=== PATIENT | male | born 1950 | race Caucasian/White ===

== ENCOUNTER 2024-04-20 04:27 | Outpatient (RCR) | payer MEDICARE, BC, SELFPAY ==
[2024-04-20 14:18] LABS: HCT 29.3 % (40.0-50.0); HGB 9.4 g/dL (13.5-17.5); MCH 27.6 pg (27.0-33.0); MCHC 32.1 % (32.0-36.0); MCV 86 fL (80-95); MPV 9.7 fL (8.0-11.0); Platelet Count 170 10^3/uL (130-400); RDW 15.2 % (11.8-14.1); RDW-SD 47.9 fL
[2024-04-20 14:43] LABS: Absolute Eosinophil Count 0.04 10^3/uL (0.0-0.7); Absolute Lymphocyte Count 0.89 10^3/uL (1.2-3.4); Absolute Monocyte Count 0.14 10^3/uL (0.1-0.8); Absolute Neutrophil Count 0.71 10^3/uL (1.2-6.7)
[2024-04-20 14:47] LABS: ALT 25 U/L (16-63); AST 16 U/L (15-37); Albumin 2.7 g/dL (3.4-5.0); Alkaline Phosphatase 93 U/L (46-116); Anion Gap 9.7 mmol/L (3-11); BUN 12 mg/dL (7-18); Bilirubin, Total 0.3 mg/dL (0.2-1.0); CO2 23.3 mmol/L (21.0-32.0); CREATININE 1.3 mg/dL (0.70-1.30); Calcium 8.2 mg/dL (8.5-10.1); Chloride 110 mmol/L (98-107); Diff Comment Manual Differential; Estimated GFR 58.37 (mL/min/1.73m2); FREE T4 1.19 ng/dL (0.76-1.46); Glucose 106 mg/dL (74-106); Magnesium 1.6 mg/dL (1.8-2.4); Potassium 4.3 mmol/L (3.5-5.1); RBC Morphology Normal; Sodium 143 mmol/L (136-145); Total Protein 6.1 g/dL (6.4-8.2); WBC 1.77 10^3/uL (4.4-10.8)
== END 2024-05-17 23:59 | disposition home or self-care (01) ==
LOC: INF 04:27
PROVIDERS: PCP Family Medicine; Visit Provider Internal Medicine Medical Oncology
DX: C34.91 Malignant neoplasm of unspecified part of right bronchus or lung (principal); C79.71 Secondary malignant neoplasm of right adrenal gland; C79.72 Secondary malignant neoplasm of left adrenal gland; C78.89 Secondary malignant neoplasm of other digestive organs; Z79.899 Other long term (current) drug therapy
CPT/HCPCS: 36415; 80053; 83735; 84439; 84443; 85025

== ENCOUNTER 2024-06-17 01:34 | Outpatient (RCR) | payer MEDICARE, BC, SELFPAY ==
[2024-05-27] MEDS: Normal Saline Flush 10 ML SYR IVP (07:37)
[2024-05-27 08:16] LABS: Abs Immature Grans 0.08 10^3/uL (0.0-0.06); Absolute Basophil Count 0.05 10^3/uL (0.0-0.2); Absolute Eosinophil Count 0.02 10^3/uL (0.0-0.7); Absolute Lymphocyte Count 1.26 10^3/uL (1.2-3.4); Absolute Monocyte Count 0.48 10^3/uL (0.1-0.8); Absolute Neutrophil Count 3.94 10^3/uL (1.2-6.7); Basophils % 0.9 %; Eosinophils % 0.3 %; HCT 32.3 % (40.0-50.0); HGB 10.4 g/dL (13.5-17.5); Immature Grans % 1.4 %; Lymphocytes % 21.6 %; MCHC 32.2 % (32.0-36.0); MCV 87 fL (80-95); MPV 9.9 fL (8.0-11.0); Monocytes % 8.2 %; Neutrophils % 67.6 %; Platelet Count 331 10^3/uL (130-400); RBC 3.72 10^6/uL (4.36-5.78); RDW 17.5 % (11.8-14.1); RDW-SD 55.1 fL; WBC 5.83 10^3/uL (4.4-10.8)
[2024-05-27 09:01] LABS: ALT 27 U/L (16-63); AST 20 U/L (15-37); Albumin 2.6 g/dL (3.4-5.0); Alkaline Phosphatase 96 U/L (46-116); Anion Gap 7.2 mmol/L (3-11); BUN 17 mg/dL (7-18); Bilirubin, Total 0.29 mg/dL (0.2-1.0); CO2 26.8 mmol/L (21.0-32.0); CREATININE 1.3 mg/dL (0.70-1.30); Calcium 8.7 mg/dL (8.5-10.1); Chloride 105 mmol/L (98-107); Estimated GFR 58.37 (mL/min/1.73m2); FREE T4 1.37 ng/dL (0.76-1.46); Glucose 111 mg/dL (74-106); Magnesium 1.8 mg/dL (1.8-2.4); Potassium 4.5 mmol/L (3.5-5.1); Sodium 139 mmol/L (136-145); TSH 6.37 uIU/Ml (0.36-3.74); Total Protein 6.7 g/dL (6.4-8.2)
[2024-06-17] MEDS: Normal Saline Flush 10 ML SYR IVP (07:25)
[2024-06-17 07:28] LABS: Abs Immature Grans 0.11 10^3/uL (0.0-0.06); Absolute Basophil Count 0.05 10^3/uL (0.0-0.2); Absolute Eosinophil Count 0.02 10^3/uL (0.0-0.7); Absolute Monocyte Count 0.51 10^3/uL (0.1-0.8); Absolute Neutrophil Count 6.91 10^3/uL (1.2-6.7); Basophils % 0.6 %; Eosinophils % 0.2 %; HCT 31.7 % (40.0-50.0); Immature Grans % 1.3 %; Lymphocytes % 12.6 %; MCH 28.7 pg (27.0-33.0); MCHC 31.5 % (32.0-36.0); MCV 91 fL (80-95); MPV 9.7 fL (8.0-11.0); Monocytes % 5.9 %; Neutrophils % 79.4 %; Platelet Count 150 10^3/uL (130-400); RBC 3.49 10^6/uL (4.36-5.78); RDW 20.5 % (11.8-14.1); RDW-SD 63.1 fL
[2024-06-17 08:05] LABS: Anisocytosis 2+; Diff Comment RBC Morph Reviewed; Polychromasia Present
[2024-06-17 08:08] LABS: ALT 28 U/L (16-63); AST 18 U/L (15-37); Albumin 3.2 g/dL (3.4-5.0); Alkaline Phosphatase 112 U/L (46-116); Anion Gap 11.2 mmol/L (3-11); BUN 28 mg/dL (7-18); Bilirubin, Total 0.34 mg/dL (0.2-1.0); CO2 22.8 mmol/L (21.0-32.0); CREATININE 1.6 mg/dL (0.70-1.30); Calcium 8.7 mg/dL (8.5-10.1); Chloride 106 mmol/L (98-107); FREE T4 1.08 ng/dL (0.76-1.46); Glucose 116 mg/dL (74-106); Magnesium 1.7 mg/dL (1.8-2.4); Potassium 4.8 mmol/L (3.5-5.1); Sodium 140 mmol/L (136-145); TSH 4.71 uIU/Ml (0.36-3.74); Total Protein 6.7 g/dL (6.4-8.2)
== END 2024-06-17 23:59 | disposition home or self-care (01) ==
LOC: INF 01:34
PROVIDERS: PCP Family Medicine; Visit Provider Internal Medicine Medical Oncology
DX: C34.91 Malignant neoplasm of unspecified part of right bronchus or lung (principal); Z79.899 Other long term (current) drug therapy; Z45.2 Encounter for adjustment and management of vascular access device
CPT/HCPCS: 36591; 80053; 83735; 84439; 84443; 85025

== ENCOUNTER 2024-07-06 03:14 | Outpatient (RCR) | payer MEDICARE, BC, SELFPAY ==
[2024-07-06] MEDS: Normal Saline Flush 10 ML SYR IVP (07:33)
[2024-07-06 07:57] LABS: Abs Immature Grans 0.17 10^3/uL (0.0-0.06); Absolute Basophil Count 0.06 10^3/uL (0.0-0.2); Absolute Eosinophil Count 0.04 10^3/uL (0.0-0.7); Absolute Lymphocyte Count 1.46 10^3/uL (1.2-3.4); Absolute Monocyte Count 0.48 10^3/uL (0.1-0.8); Absolute Neutrophil Count 7.27 10^3/uL (1.2-6.7); Basophils % 0.6 %; Eosinophils % 0.4 %; HGB 9.7 g/dL (13.5-17.5); Immature Grans % 1.8 %; Lymphocytes % 15.4 %; MCHC 32.3 % (32.0-36.0); MCV 93 fL (80-95); MPV 9.8 fL (8.0-11.0); Monocytes % 5.1 %; Neutrophils % 76.7 %; Platelet Count 119 10^3/uL (130-400); RBC 3.23 10^6/uL (4.36-5.78); RDW 21.9 % (11.8-14.1); RDW-SD 73.8 fL; WBC 9.48 10^3/uL (4.4-10.8)
[2024-07-06 08:18] LABS: Anisocytosis 2+; Diff Comment RBC Morph Reviewed
[2024-07-06 08:31] LABS: ALT 23 U/L (16-63); AST 13 U/L (15-37); Albumin 3.4 g/dL (3.4-5.0); Alkaline Phosphatase 118 U/L (46-116); Anion Gap 8.1 mmol/L (3-11); BUN 23 mg/dL (7-18); Bilirubin, Total 0.26 mg/dL (0.2-1.0); CO2 23.9 mmol/L (21.0-32.0); CREATININE 1.5 mg/dL (0.70-1.30); Calcium 8.7 mg/dL (8.5-10.1); Chloride 106 mmol/L (98-107); Estimated GFR 49.16 (mL/min/1.73m2); FREE T4 1.13 ng/dL (0.76-1.46); Glucose 120 mg/dL (74-106); Magnesium 1.4 mg/dL (1.8-2.4); Potassium 4.6 mmol/L (3.5-5.1); Sodium 138 mmol/L (136-145); TSH 6.65 uIU/Ml (0.36-3.74); Total Protein 6.6 g/dL (6.4-8.2)
== END 2024-07-18 23:59 | disposition home or self-care (01) ==
LOC: INF 03:14
PROVIDERS: PCP Family Medicine; Visit Provider Internal Medicine Medical Oncology
DX: C34.91 Malignant neoplasm of unspecified part of right bronchus or lung (principal); Z79.899 Other long term (current) drug therapy; Z45.2 Encounter for adjustment and management of vascular access device
CPT/HCPCS: 36591; 80053; 83735; 84439; 84443; 85025

== ENCOUNTER 2024-08-03 04:03 | Outpatient (RCR) | payer MEDICARE, BC, SELFPAY ==
[2024-07-29 08:05] LABS: CREATININE 1.7 mg/dL (0.70-1.30)
[2024-07-29] MEDS: Normal Saline Flush 10 ML SYR IVP (08:17)
[2024-08-03] MEDS: Normal Saline Flush 10 ML SYR IVP (12:49)
[2024-08-03 13:25] LABS: Abs Immature Grans 0.01 10^3/uL (0.0-0.06); Absolute Basophil Count 0.09 10^3/uL (0.0-0.2); Absolute Eosinophil Count 0.17 10^3/uL (0.0-0.7); Absolute Monocyte Count 0.57 10^3/uL (0.1-0.8); Absolute Neutrophil Count 3.69 10^3/uL (1.2-6.7); Basophils % 1.5 %; Eosinophils % 2.9 %; HCT 31.9 % (40.0-50.0); HGB 10.6 g/dL (13.5-17.5); Immature Grans % 0.2 %; Lymphocytes % 23.6 %; MCH 33.1 pg (27.0-33.0); MCHC 33.2 % (32.0-36.0); MCV 100 fL (80-95); MPV 9.6 fL (8.0-11.0); Monocytes % 9.6 %; Neutrophils % 62.2 %; Platelet Count 148 10^3/uL (130-400); RDW-SD 62.3 fL; WBC 5.93 10^3/uL (4.4-10.8)
[2024-08-03 13:59] LABS: ALT 21 U/L (16-63); AST 20 U/L (15-37); Albumin 3.4 g/dL (3.4-5.0); Alkaline Phosphatase 89 U/L (46-116); Anion Gap 7.8 mmol/L (3-11); BUN 23 mg/dL (7-18); Bilirubin, Total 0.47 mg/dL (0.2-1.0); CO2 23.2 mmol/L (21.0-32.0); CREATININE 1.5 mg/dL (0.70-1.30); Calcium 8.8 mg/dL (8.5-10.1); Chloride 107 mmol/L (98-107); Estimated GFR 49.16 (mL/min/1.73m2); FREE T4 1.04 ng/dL (0.76-1.46); Glucose 92 mg/dL (74-106); Magnesium 1.8 mg/dL (1.8-2.4); Potassium 4.4 mmol/L (3.5-5.1); Sodium 138 mmol/L (136-145); TSH 4.28 uIU/Ml (0.36-3.74); Total Protein 6.6 g/dL (6.4-8.2)
== END 2024-08-17 23:59 | disposition home or self-care (01) ==
LOC: INF 04:03
PROVIDERS: Radiology Radiation Oncology; PCP Family Medicine; Visit Provider Internal Medicine Medical Oncology
DX: C34.91 Malignant neoplasm of unspecified part of right bronchus or lung; C78.89 Secondary malignant neoplasm of other digestive organs; Z79.899 Other long term (current) drug therapy; C79.72 Secondary malignant neoplasm of left adrenal gland
CPT/HCPCS: 36591; 80053; 82565; 83735; 84439; 84443; 85025

== ENCOUNTER 2024-08-24 09:25 | Outpatient (REF) | payer MEDICARE, BC, SELFPAY ==
[2024-08-24 09:51] LABS: Abs Immature Grans 0.02 10^3/uL (0.0-0.06); Absolute Basophil Count 0.03 10^3/uL (0.0-0.2); Absolute Eosinophil Count 0.11 10^3/uL (0.0-0.7); Absolute Lymphocyte Count 0.43 10^3/uL (1.2-3.4); Absolute Monocyte Count 0.36 10^3/uL (0.1-0.8); Absolute Neutrophil Count 4.19 10^3/uL (1.2-6.7); Basophils % 0.6 %; Eosinophils % 2.1 %; HCT 30.7 % (40.0-50.0); HGB 10.4 g/dL (13.5-17.5); Immature Grans % 0.4 %; Lymphocytes % 8.4 %; MCH 34.1 pg (27.0-33.0); MCHC 33.9 % (32.0-36.0); MCV 101 fL (80-95); MPV 9.3 fL (8.0-11.0); Neutrophils % 81.5 %; Platelet Count 173 10^3/uL (130-400); RBC 3.05 10^6/uL (4.36-5.78); RDW 12.9 % (11.8-14.1); RDW-SD 47.4 fL; WBC 5.14 10^3/uL (4.4-10.8)
[2024-08-24 10:15] LABS: ALT 13 U/L (16-63); AST 20 U/L (15-37); Alkaline Phosphatase 90 U/L (46-116); Anion Gap 11.5 mmol/L (3-11); BUN 17 mg/dL (7-18); Bilirubin, Total 0.53 mg/dL (0.2-1.0); CO2 24.5 mmol/L (21.0-32.0); CREATININE 1.3 mg/dL (0.70-1.30); Calcium 8.8 mg/dL (8.5-10.1); Chloride 107 mmol/L (98-107); Estimated GFR 58.37 (mL/min/1.73m2); Glucose 117 mg/dL (74-106); Magnesium 1.9 mg/dL (1.8-2.4); Potassium 3.9 mmol/L (3.5-5.1); Sodium 143 mmol/L (136-145); TSH 4.49 uIU/Ml (0.36-3.74); Total Protein 6.7 g/dL (6.4-8.2)
== END 2024-08-24 09:26 | disposition home or self-care (01) ==
LOC: LBN 09:25
PROVIDERS: PCP Family Medicine; Visit Provider Internal Medicine Medical Oncology
DX: Z79.899 Other long term (current) drug therapy (principal); C34.91 Malignant neoplasm of unspecified part of right bronchus or lung; C79.71 Secondary malignant neoplasm of right adrenal gland
CPT/HCPCS: 80053; 83735; 84439; 84443; 85025

== ENCOUNTER 2024-09-14 01:42 | Outpatient (RCR) | payer MEDICARE, BC, SELFPAY ==
[2024-09-14] MEDS: Normal Saline Flush 10 ML SYR IVP (07:41)
[2024-09-14 07:54] LABS: Abs Immature Grans 0.02 10^3/uL (0.0-0.06); Absolute Basophil Count 0.03 10^3/uL (0.0-0.2); Absolute Eosinophil Count 0.14 10^3/uL (0.0-0.7); Absolute Lymphocyte Count 0.47 10^3/uL (1.2-3.4); Absolute Monocyte Count 0.46 10^3/uL (0.1-0.8); Absolute Neutrophil Count 2.86 10^3/uL (1.2-6.7); Basophils % 0.8 %; Eosinophils % 3.5 %; HCT 32.1 % (40.0-50.0); HGB 10.8 g/dL (13.5-17.5); Immature Grans % 0.5 %; Lymphocytes % 11.8 %; MCH 33.4 pg (27.0-33.0); MCHC 33.6 % (32.0-36.0); MCV 99 fL (80-95); MPV 9.6 fL (8.0-11.0); Monocytes % 11.6 %; Neutrophils % 71.8 %; Platelet Count 109 10^3/uL (130-400); RBC 3.23 10^6/uL (4.36-5.78); RDW 12.5 % (11.8-14.1); RDW-SD 44.9 fL; WBC 3.98 10^3/uL (4.4-10.8)
[2024-09-14 08:26] LABS: ALT 21 U/L (16-63); AST 23 U/L (15-37); Alkaline Phosphatase 84 U/L (46-116); Anion Gap 8.7 mmol/L (3-11); BUN 23 mg/dL (7-18); Bilirubin, Total 0.35 mg/dL (0.2-1.0); CO2 29.3 mmol/L (21.0-32.0); CREATININE 1.4 mg/dL (0.70-1.30); Calcium 8.9 mg/dL (8.5-10.1); Chloride 105 mmol/L (98-107); FREE T4 1.19 ng/dL (0.76-1.46); Glucose 115 mg/dL (74-106); Magnesium 1.4 mg/dL (1.8-2.4); Potassium 3.4 mmol/L (3.5-5.1); Sodium 143 mmol/L (136-145); TSH 5.23 uIU/mL (0.36-3.74); Total Protein 6.6 g/dL (6.4-8.2)
== END 2024-09-17 23:59 | disposition home or self-care (01) ==
LOC: INF 01:42
PROVIDERS: PCP Family Medicine; Visit Provider Internal Medicine Medical Oncology
DX: C34.91 Malignant neoplasm of unspecified part of right bronchus or lung (principal); C79.71 Secondary malignant neoplasm of right adrenal gland; C79.72 Secondary malignant neoplasm of left adrenal gland; C78.89 Secondary malignant neoplasm of other digestive organs; Z45.2 Encounter for adjustment and management of vascular access device; Z79.899 Other long term (current) drug therapy
CPT/HCPCS: 36591; 80053; 83735; 84439; 84443; 85025

== ENCOUNTER 2024-10-05 01:50 | Outpatient (RCR) | payer MEDICARE, BC, SELFPAY ==
[2024-10-05] MEDS: Normal Saline Flush 10 ML SYR IVP (07:53)
[2024-10-05 08:07] LABS: Abs Immature Grans 0.01 10^3/uL (0.0-0.06); Absolute Basophil Count 0.04 10^3/uL (0.0-0.2); Absolute Neutrophil Count 3.47 10^3/uL (1.2-6.7); Basophils % 0.9 %; Eosinophils % 4.3 %; HCT 30.3 % (40.0-50.0); HGB 10.3 g/dL (13.5-17.5); Immature Grans % 0.2 %; Lymphocytes % 8.7 %; MCH 32.8 pg (27.0-33.0); MCV 97 fL (80-95); MPV 9.4 fL (8.0-11.0); Monocytes % 10.8 %; Neutrophils % 75.1 %; Platelet Count 142 10^3/uL (130-400); RBC 3.14 10^6/uL (4.36-5.78); RDW 13.1 % (11.8-14.1); RDW-SD 45.6 fL; WBC 4.62 10^3/uL (4.4-10.8)
[2024-10-05 08:30] LABS: ALT 19 U/L (16-63); AST 21 U/L (15-37); Albumin 2.9 g/dL (3.4-5.0); Alkaline Phosphatase 98 U/L (46-116); Anion Gap 6.6 mmol/L (3-11); BUN 20 mg/dL (7-18); Bilirubin, Total 0.43 mg/dL (0.2-1.0); CO2 27.4 mmol/L (21.0-32.0); CREATININE 1.3 mg/dL (0.70-1.30); Calcium 8.6 mg/dL (8.5-10.1); Chloride 109 mmol/L (98-107); Estimated GFR 58.37 (mL/min/1.73m2); FREE T4 1.31 ng/dL (0.76-1.46); Glucose 110 mg/dL (74-106); Magnesium 1.7 mg/dL (1.8-2.4); Potassium 3.9 mmol/L (3.5-5.1); Sodium 143 mmol/L (136-145); TSH 5.16 uIU/mL (0.36-3.74); Total Protein 6.6 g/dL (6.4-8.2)
== END 2024-10-17 23:59 | disposition home or self-care (01) ==
LOC: INF 01:50
PROVIDERS: PCP Family Medicine; Visit Provider Internal Medicine Medical Oncology
DX: C34.91 Malignant neoplasm of unspecified part of right bronchus or lung (principal); C79.71 Secondary malignant neoplasm of right adrenal gland; C79.72 Secondary malignant neoplasm of left adrenal gland; C78.89 Secondary malignant neoplasm of other digestive organs; Z79.899 Other long term (current) drug therapy; Z45.2 Encounter for adjustment and management of vascular access device
CPT/HCPCS: 36591; 80053; 83735; 84439; 84443; 85025

== ENCOUNTER 2024-10-26 02:01 | Outpatient (RCR) | payer MEDICARE, BC, SELFPAY ==
[2024-10-26] MEDS: Normal Saline Flush 10 ML SYR IVP (08:31)
[2024-10-26 08:32] LABS: Abs Immature Grans 0.03 10^3/uL (0.0-0.06); HCT 34.4 % (40.0-50.0); HGB 11.9 g/dL (13.5-17.5); MCH 33.5 pg (27.0-33.0); MCHC 34.6 % (32.0-36.0); MCV 97 fL (80-95); MPV 9.4 fL (8.0-11.0); Platelet Count 185 10^3/uL (130-400); RBC 3.55 10^6/uL (4.36-5.78); RDW 13.8 % (11.8-14.1); RDW-SD 49.1 fL; WBC 6.92 10^3/uL (4.4-10.8)
[2024-10-26 09:03] LABS: ALT 29 U/L (16-63); AST 20 U/L (15-37); Albumin 3.2 g/dL (3.4-5.0); Alkaline Phosphatase 83 U/L (46-116); Anion Gap 10.1 mmol/L (3-11); BUN 45 mg/dL (7-18); Bilirubin, Total 0.48 mg/dL (0.2-1.0); CO2 23.9 mmol/L (21.0-32.0); CREATININE 1.6 mg/dL (0.70-1.30); Calcium 8.7 mg/dL (8.5-10.1); Chloride 102 mmol/L (98-107); Glucose 269 mg/dL (74-106); Magnesium 1.9 mg/dL (1.8-2.4); Potassium 4.6 mmol/L (3.5-5.1); Sodium 136 mmol/L (136-145); TSH 3.59 uIU/mL (0.36-3.74); Total Protein 6.7 g/dL (6.4-8.2)
[2024-10-26 09:07] LABS: RBC Morphology Normal
[2024-10-26 09:08] LABS: Absolute Lymphocyte Count 0.21 10^3/uL (1.2-3.4); Absolute Monocyte Count 0.07 10^3/uL (0.1-0.8); Absolute Neutrophil Count 6.64 10^3/uL (1.2-6.7); Diff Comment Manual Differential
== END 2024-11-17 23:59 | disposition home or self-care (01) ==
LOC: INF 02:01
PROVIDERS: PCP Family Medicine; Visit Provider Internal Medicine Medical Oncology
DX: C34.91 Malignant neoplasm of unspecified part of right bronchus or lung (principal); C79.71 Secondary malignant neoplasm of right adrenal gland; C79.72 Secondary malignant neoplasm of left adrenal gland; C78.89 Secondary malignant neoplasm of other digestive organs; Z45.2 Encounter for adjustment and management of vascular access device; Z79.899 Other long term (current) drug therapy
CPT/HCPCS: 36591; 80053; 83735; 84439; 84443; 85025

== ENCOUNTER 2024-11-12 11:54 | Inpatient (IN) | payer MEDICARE, BC, SELFPAY ==
[2024-11-12 12:02] VITALS: PULSE 60; RESP 18; TEMP 36.8; O2SAT 98
[2024-11-12 12:06] VITALS: BP 122/59
--- NOTE | 2024-11-12 12:08 | W.ED.GENAD ---
Discharge Plan Discharge Details Chief Complaint: GenMedical Primary Care Provider: Raleigh Berger ED Provider: Fely Pineda Home Meds and New Rx's Prescriptions: No Action Unable to Obtain atorvastatin 40 mg tablet 40 mg PO DAILY Patient Comments: TAKE 1 TABLET BY MOUTH ONCE DAILY bupropion HCl 150 mg tablet sustained-release 12 hr 150 mg PO BID Patient Comments: TAKE 1 TABLET BY MOUTH TWICE DAILY carvedilol 6.25 mg tablet 6.25 mg PO BID Patient Comments: TAKE 1 TABLET BY MOUTH TWICE DAILY . PRESCRIBED BY CARDIOLOGY amiodarone 200 mg tablet 200 mg PO Q24H Patient Comments: TAKE 1 TABLET BY MOUTH ONCE DAILY amlodipine 2.5 mg tablet 2.5 mg PO DAILY Patient Comments: TAKE 1 TABLET BY MOUTH ONCE DAILY PER STADIUM MANAGER prochlorperazine maleate 10 mg tablet 10 mg PO Q6H PRN (Reason: nausea and vomiting) omeprazole 40 mg capsule,delayed release(DR/EC) 40 mg PO BID Patient Comments: TAKE 1 CAPSULE BY MOUTH TWICE DAILY 30 MINUTES BEFORE FIRST AND LAST MEAL OF THE DAY dexamethasone 4 mg tablet 8 mg PO Q24H Patient Comments: TAKE 2 TABLETS BY MOUTH TWICE DAILY WITH FOOD FOR 2 DAYS THEN STARTING FRIDAY 11/09 TAKE 2 TABLETS ONCE DAILY WITH BREAKFAST valsartan 160 mg tablet 160 mg PO BID Patient Comments: TAKE 1 TABLET BY MOUTH TWICE DAILY escitalopram oxalate 10 mg tablet 10 mg PO DAILY Patient Comments: TAKE 1 TABLET BY MOUTH ONCE DAILY memantine 10 mg tablet 5 mg PO BID Patient Comments: TAKE 1/2 (ONE-HALF) TABLET BY MOUTH ONCE DAILY FOR 7 DAYS,THEN 1/2 TAB IN THE MORNING AND 1/2 TAB IN THE EVENING FOR 7 DAYS, THEN 1 TAB IN THE MORNING AND 1/2 TAB IN THE EVENING FOR 7 DAYS, THEN 1 TAB IN THE MORNING AND 1 TAB IN THE EVENING HPI General Date/Time Provider Initiated Documentation: 11/12/24 12:04. HPI Narrative: Elbert is a 73year old male who presents to the emergency department today for evaluation of weakness. He is a patient of [facility], was advised to come to the emergency department for palliative care visit. He reports that he has had increased dizziness from sitting to standing and balance issues since the beginning of the month, he feels that this is related to his brain metastases which are being treated with dexamethasone. He also reports nausea and arm weakness in the morning that he attributes to dexamethasone use, says that these both improved throughout the day. Does have some decreased p.o. intake as well. Denies fever/chills, vision changes, new congestion, sore throat, ear pain, cough, chest pain, shortness of breath, vomiting, abdominal pain, change in bowel or bladder function, black/tarry stools, pedal edema. He had a CAT scan and MRI earlier in the month for evaluation of the dizziness and balance issues. 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 His son is concerned because he lives 75 minutes away on a good day, tries to visit daily, but Elbert has been having increased falls recently, especially when walking or going from sitting to standing. He does walk with a walker. He is not on anticoagulation. Physical exam reassuring. Elbert does have a shuffling gait, some swaying with Romberg. Normal finger to finger, [id number]. 5 out of 5 muscle strength upper and lower extremities, he does have some weakness in his right leg that is due to metastasis to his hip. PERRL, EOMs intact. Moist mucous membranes. Easy work of breathing, lung sounds clear bilaterally. Normal heart sounds. Abdomen is soft, nondistended, nontender palpation. No pedal edema or JVD noted. D/dx includes but is not limited to: Occult infection such as pneumonia or UTI, electrolyte imbalance, dehydration, natural progression of cancer. No concern at this time for sepsis, patient does not meet SIRS criteria. I independently interpreted the following tests: UA consistent with UTI, with large blood and greater than 50 white blood cells that scare microscopic exam. COVID/flu/RSV negative. Reassuring CBC, CMP, and magnesium. No significant change in baseline anemia or kidney function I presented case to Dr. Tolliver, [facility] hospitalist. He is agreeable to admit patient for UTI with associated weakness. While in the emergency department, Elbert received ceftriaxone IV for treatment of UTI. Consult with palliative care performed in ED. Awaiting consult with PT and care management to be performed inpatient. Patient and his son Ean are agreeable with plan of care Related Data Home Medications ?Medication ?Instructions ?Recorded ?Confirmed Unknown [Unable to Obtain] 11/12/24 11/12/24 amiodarone 200 mg tablet 200 mg PO Q24H 11/12/24 11/12/24 amlodipine 2.5 mg tablet 2.5 mg PO DAILY 11/12/24 11/12/24 atorvastatin 40 mg tablet 40 mg PO DAILY 11/12/24 11/12/24 bupropion HCl 150 mg tablet,12 hr 150 mg PO BID 11/12/24 11/12/24 sustained-release carvedilol 6.25 mg tablet 6.25 mg PO BID 11/12/24 11/12/24 dexamethasone 4 mg tablet 8 mg PO Q24H 11/12/24 11/12/24 escitalopram oxalate 10 mg tablet 10 mg PO DAILY 11/12/24 11/12/24 memantine 10 mg tablet 5 mg PO BID 11/12/24 11/12/24 omeprazole 40 mg capsule,delayed 40 mg PO BID 11/12/24 11/12/24 release prochlorperazine maleate 10 mg 10 mg PO Q6H PRN nausea and 11/12/24 11/12/24 tablet vomiting valsartan 160 mg tablet 160 mg PO BID 11/12/24 11/12/24 Allergies Allergy/AdvReac Type Severity Reaction Status Date / Time No Known Allergies Allergy Unverified 11/12/24 12:06 General Stated Complaint: GenMedical LISANDRO: 4 Review of Systems Narrative: See HPI Exam Const General: cooperative, comfortable, no acute distress and well developed Nutritional Appearance: average body habitus Orientation: alert and oriented x3 HENMT Head: normal to inspection General nose exam: external nose normal Face and sinus: normal facial exam Mouth: oral mucosae normal, lip normal and tongue normal Throat: posterior oropharynx normal Eyes Pupils: PERRL EOM: EOM intact bilaterally Neck Neck: normal visual inspection, no lymphadenopathy and no JVD Resp Effort & Inspection: normal respiratory effort and able to speak in complete sentences Auscultation: clear to auscultation bilaterally Cardio Jugular venous pressure: no JVD Rate: regular rate Rhythm: regular rhythm GI Inspection: normal to inspection and non-distended Palpation: soft, not firm, no guarding, not rigid and nontender Auscultation: normal bowel sounds Skin General skin exam: no rashes or lesions noted Neuro General: patient alert, patient oriented x3, tone normal, moves all extremities and no focal motor deficits Cranial Nerves: PERRL, EOM intact bilaterally, no nystagmus, facial strength normal and tongue midline Cognition: normal cognition Speech: speech normal Gait: shuffling Motor: muscle tone normal throughout and strength 5/5 throughout (Slight weakness noted to right lower extremity) Coordination: [id number] test normal, rapid alternating movement UE normal and other (Some mild swaying with Romberg) Course Vital Signs Vital signs: Vital Signs Temperature 36.8 C 11/12/24 12:02 Pulse 60 11/12/24 12:02 Respiratory Rate 18 11/12/24 12:02 Pulse Oximetry 98 11/12/24 12:02 Temperature 36.8 C 11/12/24 12:02 Pulse 60 11/12/24 12:02 Respiratory Rate 18 11/12/24 12:02 Blood Pressure 122/59 L 11/12/24 12:06 Blood Pressure Position Sitting 11/12/24 12:06 Pulse Oximetry 98 11/12/24 12:02 Pain Level 0 11/12/24 12:02 Medical Decision Making Quality:SDOH Health Related Social Needs: No Data to Display PFSH Social History Smoking/Tobacco Use Status: Never Smoking risk assessment performed?: Yes Alcohol Intake: former Substance use type: does not use Do you feel safe at home: Yes Do you feel safe in your relationship?: Yes
--- NOTE | 2024-11-12 12:30 | RT.EKG_ITS ---
APPROVED REPORT Exam: Resting ECG Reason for Exam: Weakness Patient Location: E HR:53 bpm ECG Measurements Heart Rate 53 AXIS AL 254 P 261 QRSd 138 QRS -37 QT 482 T 98 QTc 453 Conclusion Sinus 53 First Degree AV Block no stemi
[2024-11-12 13:21] LABS: Abs Immature Grans 0.04 10^3/uL (0.0-0.06); Absolute Basophil Count 0.01 10^3/uL (0.0-0.2); Absolute Eosinophil Count 0.03 10^3/uL (0.0-0.7); Absolute Lymphocyte Count 0.39 10^3/uL (1.2-3.4); Basophils % 0.1 %; Eosinophils % 0.4 %; HCT 33.1 % (40.0-50.0); HGB 11.2 g/dL (13.5-17.5); Immature Grans % 0.6 %; Lymphocytes % 5.5 %; MCH 33.1 pg (27.0-33.0); MCHC 33.8 % (32.0-36.0); MCV 98 fL (80-95); MPV 9.2 fL (8.0-11.0); Monocytes % 2.8 %; Neutrophils % 90.6 %; RBC 3.38 10^6/uL (4.36-5.78); RDW 14.4 % (11.8-14.1); RDW-SD 51.9 fL; WBC 7.07 10^3/uL (4.4-10.8)
--- NOTE | 2024-11-12 13:23 | DI.RAD_ITS ---
Exam(s) XR CHEST 2V PA LATERAL EXAM: XR CHEST 2V PA LATERAL CLINICAL HISTORY: Weakness, rule out occult pneumonia TECHNIQUE: 2D digital imaging was performed. Two views. CT CT CHEST W CONTRAST from 10/20/2024 FINDINGS: HEART: Normal size. Mitral valve prosthesis. Prior CABG. Aorta: Not dilated. PULMONARY VASCULATURE: Normal. MEDIASTINUM: Unremarkable. LUNGS: Clear. PLEURAL SPACE: No pleural effusion or pneumothorax. BONE:Unremarkable for age. SOFT TISSUES: Port over right upper chest tip in lower SVC IMPRESSION: No acute abnormality. DATA REPOSITORY: RADIATION DOSE DELIVERED:
[2024-11-12 13:35] LABS: Platelet Count 85 10^3/uL (130-400)
[2024-11-12 13:37] LABS: ALT 57 U/L (16-63); AST 44 U/L (15-37); Albumin 2.7 g/dL (3.4-5.0); Alkaline Phosphatase 64 U/L (46-116); Anion Gap 3.2 mmol/L (3-11); BUN 40 mg/dL (7-18); Bilirubin, Total 0.66 mg/dL (0.2-1.0); CO2 29.8 mmol/L (21.0-32.0); CREATININE 1.5 mg/dL (0.70-1.30); Calcium 8.3 mg/dL (8.5-10.1); Chloride 103 mmol/L (98-107); Estimated GFR 49.16 (mL/min/1.73m2); Glucose 86 mg/dL (74-106); Potassium 4.7 mmol/L (3.5-5.1); Sodium 136 mmol/L (136-145); Total Protein 5.6 g/dL (6.4-8.2)
[2024-11-12 14:04] LABS: Bilirubin Negative (Negative); Blood Moderate (Negative); Clarity Cloudy (Clear); Glucose 100 mg/dL (Negative); Ketones Negative (Negative); Leukocyte Esterase Trace (Negative); Nitrite Negative (Negative); Specific Gravity 1.025 (1.005-1.025); pH 5.5 (5-8)
[2024-11-12 14:07] LABS: COVID-19 PCR Negative (Negative); Influenza A PCR Negative (Negative); Influenza B PCR Negative (Negative); RSV PCR Negative (Negative)
[2024-11-12 14:15] LABS: C & S Indicated? Yes; WBC >50 HPF (0-5)
[2024-11-12] MEDS: Dexamethasone 4 MG TAB PO ×2 (14:30→20:02)
[2024-11-12 14:37] VITALS: BP 111/67; PULSE 56; RESP 18; O2SAT 100
[2024-11-12] MEDS: cefTRIAXone 1 GM/50 ML BAG IVPB (14:45)
[2024-11-12 14:55] LABS: Source Nasopharynx
--- NOTE | 2024-11-12 15:15 | TELEP.MEDR_ITS ---
Date of service: 11/12/24 Time of Service: 15:15 [facility] Home Med Rec Allergies Allergies: No Known Allergies Allergy (Unverified 11/12/24 12:06) Interview Person Interviewed: * Only able to use prescription fill history to complete med rec, per RN both patient and family do not know what he takes for medications at home. Quality Quality of Interview/Accuracy of Medication List: Poor Sources Sources used to compile medication list: Retail Pharmacy Changes made to Home Medication List: ADDITIONS: * Omeprazole 40mg po bid * Coreg 6.25mg po bid * Amlodipine 2.5mg po daily * Valsartan 160mg po bid * Wellbutrin SR 150 mg po bid * Compazine 10mg po q6hprn * Lexapro 10mg po daily * Amiodarone 200mg po daily * Namenda current dose on taper up 5mg po bid * Lipitor 40mg po daily * Dexamethasone 8mg po daily DELETIONS: * Flonase * Epipen CHANGES: * None Additional Notes Additional Notes: * Only able to update med rec with information from recent fill history in [facility]. No information on last doses available. Recommended Changes Recommended Changes(reason for recommendation): * None Attestation: The home medication list is now updated to the best of my knowledge and is ready to be reconciled by the provider. Please contact the [facility] Medication Reconciliation Pharmacist at for any questions.
--- NOTE | 2024-11-12 15:15 | TELEP.MEDREC ---
Date of service: 11/12/24 Time of Service: 15:15 [facility] Home Med Rec Allergies Allergies: No Known Allergies Allergy (Unverified 11/12/24 12:06) Interview Person Interviewed: Only able to use prescription fill history to complete med rec, per RN both patient and family do not know what he takes for medications at home. Quality Quality of Interview/Accuracy of Medication List: Poor Sources Sources used to compile medication list: Retail Pharmacy Changes made to Home Medication List: ADDITIONS: Omeprazole 40mg po bid Coreg 6.25mg po bid Amlodipine 2.5mg po daily Valsartan 160mg po bid Wellbutrin SR 150 mg po bid Compazine 10mg po q6hprn Lexapro 10mg po daily Amiodarone 200mg po daily Namenda current dose on taper up 5mg po bid Lipitor 40mg po daily Dexamethasone 8mg po daily DELETIONS: Flonase Epipen CHANGES: None Additional Notes Additional Notes: Only able to update med rec with information from recent fill history in [employer]. No information on last doses available. Recommended Changes Recommended Changes(reason for recommendation): None Attestation: The home medication list is now updated to the best of my knowledge and is ready to be reconciled by the provider. Please contact the [facility] Medication Reconciliation Pharmacist at for any questions.
[2024-11-12 15:39] VITALS: BP 111/67; PULSE 56; RESP 18; O2SAT 100
--- NOTE | 2024-11-12 15:42 | W.PC.ACHO ---
Registration Status: Primary Language: Preferred Language: ED Information & Data Chief Complaint GenMedical 11/12/24 12:08 Triage Note [facility] here for hospice/ 11/12/24 12:02 palliative care plan Most Recent Vital Signs Temperature 36.8 C 11/12/24 12:02 Pulse 56 L 11/12/24 14:37 Respiratory Rate 18 11/12/24 14:37 Blood Pressure 111/67 11/12/24 14:37 Blood Pressure Position Sitting 11/12/24 12:06 Pulse Oximetry 100 11/12/24 14:37 Oxygen Delivery Method Room Air 11/12/24 14:37 Oxygen Flow Rate 0 11/12/24 14:37 Pain Level 0 11/12/24 12:02 Allergies No Known Allergies Allergy (Unverified 11/12/24 12:06) IV IV Catheter Type [Right Saline Lock Antecubital] IV Catheter Gauge [Right 20 Antecubital] Diet Orders Category Date Time Status Regular/Normal [DIET] Nutrition 11/12/24 Dinner Active Diagnostics 11/12/24 11/12/24 11/12/24 Range/Units 13:55 13:24 13:02 WBC 7.07 (4.4-10.8) 10^3/uL RBC 3.38 L (4.36-5.78) 10^6/uL Hgb 11.2 L (13.5-17.5) g/dL Hct 33.1 L (40.0-50.0) % MCV 98 H (80-95) fL MCH 33.1 H (27.0-33.0) pg MCHC 33.8 (32.0-36.0) % RDW 14.4 H (11.8-14.1) % Plt Count 85 L (130-400) 10^3/uL MPV 9.2 (8.0-11.0) fL Immature Gran % 0.6 % Neutrophils % 90.6 % Lymphocytes % 5.5 % Monocytes % 2.8 % Eosinophils % 0.4 % Basophils % 0.1 % Nucleated RBC % 0.0 (0.0-0.3) % Absolute Neutrophils 6.40 (1.2-6.7) 10^3/uL Absolute Lymphocytes 0.39 L (1.2-3.4) 10^3/uL Absolute Monocytes 0.20 (0.1-0.8) 10^3/uL Absolute Eosinophils 0.03 (0.0-0.7) 10^3/uL Absolute Basophils 0.01 (0.0-0.2) 10^3/uL Sodium 136 (136-145) mmol/L Potassium 4.7 (3.5-5.1) mmol/L Chloride 103 (98-107) mmol/L Carbon Dioxide 29.8 (21.0-32.0) mmol/L Anion Gap 3.2 (3-11) mmol/L BUN 40 H (7-18) mg/dL Creatinine 1.5 H (0.70-1.30) mg/dL Est GFR (CKD-EPI 2020) 49.16 (mL/min/1.73m2) Glucose 86 (74-106) mg/dL Calcium 8.3 L (8.5-10.1) mg/dL Magnesium 2.0 (1.8-2.4) mg/dL Total Bilirubin 0.66 (0.2-1.0) mg/dL AST 44 H (15-37) U/L ALT 57 (16-63) U/L Alkaline Phosphatase 64 (46-116) U/L Total Protein 5.6 L (6.4-8.2) g/dL Albumin 2.7 L (3.4-5.0) g/dL Urine Color Yellow (Yellow) Urine Clarity Cloudy (Clear) Urine pH 5.5 (5-8) Ur Specific [place] 1.025 (1.005-1.025) Urine Protein 30 H (Neg-Trace) mg/dL Urine Ketones Negative (Negative) mg/dL Urine Blood Moderate H (Negative) Urine Nitrite Negative (Negative) Urine Bilirubin Negative (Negative) Urine Urobilinogen 1.0 H (Up to 0.2) mg/dL Ur Leukocyte Esterase Trace H (Negative) Urine RBC Not Applicable Urine WBC >50 H (0-5) HPF Ur Epithelial Cells Not Applicable Urine Crystals Not Applicable Urine Bacteria Not Applicable Urine Mucus Not Applicable Ur Culture Indicated? Yes Urine Glucose 100 H (Negative) mg/dL COVID-19 Source Nasopharynx SARS-CoV-2 (PCR) Negative (Negative) Influenza Type A (PCR) Negative (Negative) Influenza Type B (PCR) Negative (Negative) RSV (PCR) Negative (Negative) 11/12/24 13:55 Urine Culture - Pending Urine - Reflex from Ua Intake and Output - 24 Hour Total 11/12/24 11:54 thru 11/12/24 15:16 Intake Total 60 Balance 60 Weight 720.758 kg Intake: IV 60 Falls Risk Assessment History of Falls Previous History 11/12/24 14:50 Contributing Factors Impairments 11/12/24 14:50 Ambulatory Aids Uses ambulatory device 11/12/24 14:50 Tubes/Lines None 11/12/24 14:50 Gait Evaluation W/no contributing factors 11/12/24 14:50 Cognition No cognitive impairment 11/12/24 14:50 Fall Total Score 43 11/12/24 14:50 Level of Risk Moderate Risk 11/12/24 14:50 Problems Weakness (Acute) UTI (urinary tract infection) (Acute) v v v v v v v v v Sending and/or Receiving Nurses: Please use comment section below to note any information pertinent to the patient hand-off not included above. Information / Comments: Report received from: Called and given report by FER Arellano from ED at 1538.
[2024-11-12 15:50] VITALS: BP 105/59; PULSE 58; RESP 14; TEMP 36.4; O2SAT 97
--- NOTE | 2024-11-12 15:53 | PCNE_ITS ---
Date of service: 11/12/24 Time of Service: 14:45 History of Present Illness Narrative: Mr. Dexter is a 73 y/o M seen by PC in ED prior to inpatient admission 2/2 weakness/UTI; PMHx sig for stage 4 lung cancer w/femur and brain mets; present son/HCA Yazidi - PC consult placed prior to admission to review GOC Isacc has been undergoing palliative treatments for metastatic lung cancer, f/b Dr. Coleman at . He was at [facility] for RadOnc 6 of 10 sessions today to femur, he was sent to ED for evaluation d/t increased falls and weakness; work up found UTI, admitted for ongoing management and evaluation Isacc believes he has been feeling increasingly unstable and more weak 2/2 increased dexamethasone dose to 8mg, felt much more stable on 4mg, RadOn changed dose today to 4mg BID, this just stared, all are optimistic that this will help him feel better. Up to Thanks, he had been doing fine, pretty active, stable and feeling well. Since then they have noticed a quick decline, specifically w/weakness and off balance. He has had 2.5 falls most recently, requiring assistance up from falls, he has called ambulance for help up and son as helped. He does now have an apple watch w/falls detection, which has worked well when needed. Home health was to start today, however this is now delayed d/t admission. Oncology plan is for 10 sessions of palliative radiation. Dexamethasone to decrease symptoms, w/goal of resuming immunotherapy. He has just had a CT which showed increase in brain mets, scheduled for [facility] for potential resumption of immunotherapy on 11/20, f/u w/Dr Coleman 11/27, appt w/ortho on 11/17 to review if placing mahad in hip would provide QoL benefit. His only major support is his son Yazidi, who lives in [facility] w/his Lillian and their two kits Michel and [place]. Isacc was able to spend Myah there, which was a really special day for them all. Isacc would like to see if he can stabilize current condition, improve function if possible, w/goal of being offered immunotherapy again to prolong life if possible. He would choose to return home if possible, agreeable to home health if recommended again, would consent to SNF if recommended by professionals. He has a stair chair in home, walker and cane. He has completed an AD listing son Yazidi as HCA, he trusts him. He has completed [place] COLST indicating DNR, w/trial intubation for short time, he is agreeable to signing a [place] form today. previously seen by Dr. Vidal w/[facility] palliative care When thinking about having mahad in hip, or any procedure/treatment, he is thinking about his quality of life w/time left. If surgery, for example, would leave him immobile for 6 weeks, he would not want to consider this, but if for 36 hours, this feels worth it, to maintain as much independence as possible. In his ideal world he would maintain independence, even if receiving some help in home to avoid fall/injury l/t increased dependence; be comfortable, and be in home for EOL. They are aware of inpatient hospice at [facility]. Assessment and Plan Assessment and plan (1) Weakness: Status: Acute Assessment and plan: recommend PT evaluation (2) UTI (urinary tract infection): Status: Acute (3) Stage 4 lung cancer: Status: Acute Assessment and plan: f/b , [facility], Dr. Coleman, Dr Trejo; - previously on immunotherapy currently completed 6 out of 10 PalRad to femur dexamethasone 4mg BID, BID dosing started today, 8mg increased weakness/dizziness (4) Metastasis to bone: Status: Acute (5) Metastasis to brain: Status: Acute (6) Need for home health care: Status: Acute Assessment and plan: was to have admission today recommend re-send referral on discharge, pending SNF placement (7) Palliative care patient: Status: Acute Assessment and plan: PC will continue to follow Isacc; if status changes he could be seen tomorrow if needed plan for Saturday f/u inpatient if he remains hospitalized, if discharged will f/u w/ next week (8) ACP (advance care planning): Status: Acute Assessment and plan: reviewed current plan: admission for UTI treatment, PT evaluation, monitoring BID dexa dosing, w/goals of improved strength and function; if able to, preference to be discharged home w/services, he is agreeable to discharge to SNF if determined by medical team it is unsafe to return home alone. - reviewed SNF placement closer to Yazidi for more regular visits, check ins, etc reviewed may opt for hospice at any time if he would like to forego treatments for oncology, reviewed may change mind at any time; reviewed that in current condition, w/declining function, immunotherapy may not be offered; his preference is to see if he can get stabilized and improve function/weakness to try immunotherapy again - reviewed inpatient hospice at [facility] reviewed and completed [place] COLST, DNR, short trial intubation. Yazidi has a good sense of his fathers preferences spent 40m w/ACP Review of Systems Narrative: as per HPI PFSH All Active Problems (Updated 11/12/24 @ 16:07 by Halle Gutierrez NP) Palliative care patient (Acute) Need for home health care (Acute) Metastasis to brain (Acute) Metastasis to bone (Acute) Stage 4 lung cancer (Acute) ACP (advance care planning) (Acute) Weakness (Acute) UTI (urinary tract infection) (Acute) Social History Smoking/Tobacco Use Status: Never Smoking risk assessment performed?: Yes Alcohol Intake: former Substance use type: does not use Do you feel safe at home: Yes Do you feel safe in your relationship?: Yes Exam Narrative Exam Narrative: General: older adult male, sitting in ED bed; cooperative HEENT: hearing grossly WNL, normocephalic, atraumatic; eats mac and cheese/chips appropriately during visit Resp: even and unlabored, speaks full sentences w/o SOB; no audible wheeze or cough Neuro: awake, alert and oriented Psych: cooperative, calm, pleasant; appearance grossly WNL, thought content/process WNL; insight good to fair, judgment good to fair Results Last Vital Signs Temp 98.2 F 11/12/24 12:02 Pulse 56 L 11/12/24 15:39 Resp 18 11/12/24 15:39 BP 111/67 11/12/24 15:39 Pulse Ox 100 11/12/24 15:39 Labs 11/12/24 13:02 11/12/24 13:02 Labs: Laboratory Results - last 24 hr 11/12/24 11/12/24 11/12/24 13:02 13:24 13:55 WBC 7.07 RBC 3.38 L Hgb 11.2 L Hct 33.1 L MCV 98 H MCH 33.1 H MCHC 33.8 RDW 14.4 H Plt Count 85 L MPV 9.2 Immature Gran % 0.6 Neutrophils % 90.6 Lymphocytes % 5.5 Monocytes % 2.8 Eosinophils % 0.4 Basophils % 0.1 Nucleated RBC % 0.0 Absolute Neutrophils 6.40 Absolute Lymphocytes 0.39 L Absolute Monocytes 0.20 Absolute Eosinophils 0.03 Absolute Basophils 0.01 Sodium 136 Potassium 4.7 Chloride 103 Carbon Dioxide 29.8 Anion Gap 3.2 BUN 40 H Creatinine 1.5 H Est GFR (CKD-EPI 2020) 49.16 Glucose 86 Calcium 8.3 L Magnesium 2.0 Total Bilirubin 0.66 AST 44 H ALT 57 Alkaline Phosphatase 64 Total Protein 5.6 L Albumin 2.7 L Urine Color Yellow Urine Clarity Cloudy Urine pH 5.5 Ur Specific [place] 1.025 Urine Protein 30 H Urine Ketones Negative Urine Blood Moderate H Urine Nitrite Negative Urine Bilirubin Negative Urine Urobilinogen 1.0 H Ur Leukocyte Esterase Trace H Urine RBC Not Applicable Urine WBC >50 H Ur Epithelial Cells Not Applicable Urine Crystals Not Applicable Urine Bacteria Not Applicable Urine Mucus Not Applicable Ur Culture Indicated? Yes Urine Glucose 100 H COVID-19 Source Nasopharynx SARS-CoV-2 (PCR) Negative Influenza Type A (PCR) Negative Influenza Type B (PCR) Negative RSV (PCR) Negative Time Spent Time Spent with Patient Time Spent(min): 100
--- NOTE | 2024-11-12 16:31 | W.PM.HP.N ---
Date of service: 11/12/24 Time of Service: 16:31 Assessment and Plan Assessment and plan (1) Weakness: Status: Acute Assessment and plan: Increased weakness and ataxia with associated falls. Developing in setting of cerebral metastases with edema, getting whole brain radiation. He was started on dexamethasone to try to improve this but per patient getting worse. Clinically it does appear he has some degree of poor proprioception as well as some poor coordination on left side FNF possibly indicating cerebellar involvement, c/w right cerebellar involvement on recent MRI. UTI may be contributing, see below. PT consulted, he may need home care vs. placement. (2) UTI (urinary tract infection): Status: Acute Assessment and plan: Possible UTI contributing to weakness. Continue ceftriaxone, follow urine culture. (3) Metastasis to brain: Status: Acute Assessment and plan: as above. He thinks worse with 16mg/day dexamethasone, oncology recommendeds decreasing to 4mg BID. (4) Hypertension: Status: Chronic Assessment and plan: BP stable, continue outpatient medications. (5) Cardiomyopathy: Assessment and plan: LVEF normalized on recent echocardiogram, no evidence of active CHF. (6) Atrial fibrillation: Assessment and plan: Rate controlled with carvedilol, off anticoagulation due to severe GI bleed. (7) Major depression: Assessment and plan: Continue SSRI (8) Anemia: Status: Chronic Assessment and plan: This is chronic, near or improved from previous levels. Trend. (9) Thrombocytopenia: Status: Chronic Assessment and plan: This is new. No cirrhosis on CT abd/pelvis from in August. May be infiltratrive. Monitor. (10) Insomnia: Status: Acute Assessment and plan: taking advil or aleve PM. Discussed potential ADRs with NSAIDs and diphenhydramine. Try mirtazipine instead. (11) DVT prophylaxis: Status: Acute Assessment and plan: history of severe GI bleed with stomach metastases. Even with DVT, avoid anticoagulation, SCDs and work with PT. (12) Palliative care patient: Status: Acute Assessment and plan: Appreciate palliative input. They will continue to follow. 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 He has lung cancer metastatic to his brain, with progression noted on MRI on October 24. He started daily whole brain radiation on November 06. He and his family noted increased difficulty with balance, and he was started on high-dose dexamethasone over the weekend as well. Patient states his balance is worse since starting dexamethasone and he feels dizzy. He describes being unsteady on his feet, and falling over if he tips in either direction more than a few degrees. He did not hit his head or lose consciousness. He denies any vertigo. He does not feel lightheaded and has not passed out. He does use a walker, but has fallen despite this. His son states that he reaches for things to support him such as his walker, and misses them. He was sent from [facility] today for evaluation after his weakness and difficulty walking was noted. Review of Systems All systems reviewed & are unremarkable except as noted in HPI and below Constitutional Constitutional: Denies chills, Denies fever(s), Denies poor appetite and Reports weight loss (30+ lbs over past 9 months) Eyes Eyes: Denies blurry vision, Denies change in vision and Denies diplopia ENT Ears, Nose, Mouth, and Throat: Reports change in voice (a little deeper, more forced per son), Denies dysphagia, Denies vertigo, Denies nasal discharge and Denies sore throat Gastrointestinal Gastrointestinal: Denies dysphagia Genitourinary Genitourinary: Denies hematuria, Denies dysuria, Denies urinary frequency and Reports urinary hesitancy Musculoskeletal Musculoskeletal: Reports abnormal gait Neurologic Neurologic: Reports abnormal gait, Denies confusion, Denies vertigo, Denies localized weakness, Denies convulsions and Denies tremor(s) Psychiatric Psychiatric: Denies confusion PFSH All Active Problems (Updated 11/12/24 @ 16:55 by Juan Alberto Tolliver) Insomnia (Acute) DVT prophylaxis (Acute) Thrombocytopenia (Chronic) Anemia (Chronic) Hypertension (Chronic) Palliative care patient (Acute) Need for home health care (Acute) Metastasis to brain (Acute) Metastasis to bone (Acute) Stage 4 lung cancer (Acute) ACP (advance care planning) (Acute) Weakness (Acute) UTI (urinary tract infection) (Acute) Medical History Major depression Former cigarette smoker Atrial fibrillation History of GI bleed secondary to metastatic lung cancer Cardiomyopathy a/w CAD/MR, LVEF 55% up from 25-30% on 09/2024 echo Obstructive sleep apnea normalized with weight loss, no longer on CPAP Surgical History S/P mitral valve repair S/P CABG x 1 Social History Smoking/Tobacco Use Status: Never Smoking risk assessment performed?: Yes Alcohol Intake: current Alcohol Intake frequency: a few times a week Details: one drink, not since dizzy Substance use type: does not use Housing: house Do you feel safe at home: Yes Do you feel safe in your relationship?: Yes Additional Social history: Lives alone in [place] [employer], [place]. Son Ean in [place], [place] Meds Allergies and Home Medications Allergies Allergy/AdvReac Type Severity Reaction Status Date / Time No Known Allergies Allergy Unverified 11/12/24 12:06 Home Medications ?Medication ?Instructions ?Recorded ?Confirmed ?Type amiodarone 200 mg tablet 200 mg PO DAILY 11/12/24 11/12/24 History amlodipine 2.5 mg tablet 2.5 mg PO DAILY 11/12/24 11/12/24 History aspirin 81 mg tablet,delayed 81 mg PO DAILY 11/12/24 11/12/24 History release (Enteric Coated Aspirin) atorvastatin 40 mg tablet 40 mg PO DAILY 11/12/24 11/12/24 History bupropion HCl 150 mg tablet,12 hr 150 mg PO BID 11/12/24 11/12/24 History sustained-release carvedilol 6.25 mg tablet 6.25 mg PO BID 11/12/24 11/12/24 History dexamethasone 4 mg tablet 8 mg PO Q24H 11/12/24 11/12/24 History escitalopram oxalate 10 mg tablet 10 mg PO DAILY 11/12/24 11/12/24 History memantine 10 mg tablet 5 mg PO BID 11/12/24 11/12/24 History multivitamin (Daily Multi-Vitamin 1 tab PO DAILY 11/12/24 11/12/24 History tablet) omeprazole 40 mg capsule,delayed 40 mg PO BID 11/12/24 11/12/24 History release prochlorperazine maleate 10 mg 10 mg PO Q6H PRN nausea and 11/12/24 11/12/24 History tablet vomiting valsartan 160 mg tablet 160 mg PO BID 11/12/24 11/12/24 History Exam Narrative Exam Narrative: GEN: Alert and oriented x 4, pleasant and cooperative, gives mostly linear history. No acute distress at rest. HEENT: Head atraumatic. Conjunctiva clear, no icterus. PEERL, EOMI. no rhinorrhea. MMM, OP benign. Neck is supple with no masses or lymphadenopathy, trachea midline LUNGS: CTAB with normal effort CV: Irregular, borderline bradycardia, with no murmurs, gallops, or rubs. ABD: active bowel sounds, soft, nontender and nondistended. No masses. EXT: no cyanosis, clubbing, or edema MSK: No joint redness or swelling. Some pain with internal rotation and full external rotation right hip when knee flexed. No gross vicki deformity NEURO: CN 2-12 grossly intact. Normal symmetric strength of 4 extremities and gross sensation. Dysmetria with left FNF. MAURICIO and HTS intact. No pronator drift. Normal speech. DTRs symmetric bilaterally. No tremor SKIN: No rashes or open wounds, small bruises nasal bridge and under right orbit. Fresher bruises left upper back and PSIS area. PSYCH: normal mood and affect, normal thought process though son corrects some aspects of recent history. Results Imaging Chest x-ray: report reviewed (No acute abnormality. ) Additional studies: MRI brain 10/24, CT a/p 10/22 reports reviewed, see record Labs 11/12/24 13:02 11/12/24 13:02 Labs: Laboratory Results - last 24 hr 11/12/24 11/12/24 11/12/24 13:02 13:24 13:55 WBC 7.07 RBC 3.38 L Hgb 11.2 L Hct 33.1 L MCV 98 H MCH 33.1 H MCHC 33.8 RDW 14.4 H Plt Count 85 L MPV 9.2 Immature Gran % 0.6 Neutrophils % 90.6 Lymphocytes % 5.5 Monocytes % 2.8 Eosinophils % 0.4 Basophils % 0.1 Nucleated RBC % 0.0 Absolute Neutrophils 6.40 Absolute Lymphocytes 0.39 L Absolute Monocytes 0.20 Absolute Eosinophils 0.03 Absolute Basophils 0.01 Sodium 136 Potassium 4.7 Chloride 103 Carbon Dioxide 29.8 Anion Gap 3.2 BUN 40 H Creatinine 1.5 H Est GFR (CKD-EPI 2020) 49.16 Glucose 86 Calcium 8.3 L Magnesium 2.0 Total Bilirubin 0.66 AST 44 H ALT 57 Alkaline Phosphatase 64 Total Protein 5.6 L Albumin 2.7 L Urine Color Yellow Urine Clarity Cloudy Urine pH 5.5 Ur Specific [place] 1.025 Urine Protein 30 H Urine Ketones Negative Urine Blood Moderate H Urine Nitrite Negative Urine Bilirubin Negative Urine Urobilinogen 1.0 H Ur Leukocyte Esterase Trace H Urine RBC Not Applicable Urine WBC >50 H Ur Epithelial Cells Not Applicable Urine Crystals Not Applicable Urine Bacteria Not Applicable Urine Mucus Not Applicable Ur Culture Indicated? Yes Urine Glucose 100 H COVID-19 Source Nasopharynx SARS-CoV-2 (PCR) Negative Influenza Type A (PCR) Negative Influenza Type B (PCR) Negative RSV (PCR) Negative Last Vital Signs Temp 36.8 C 11/12/24 12:02 Pulse 56 L 11/12/24 15:39 Resp 18 11/12/24 15:39 BP 111/67 11/12/24 15:39 Pulse Ox 100 11/12/24 15:39 Time Spent Time spent with Patient: >75 minutes Time was spent: preparing to see the patient(eg.review tests), obtaining and/or reviewing separately otained hiistory, ordering medications,tests, procedures, referring, communicating with other health manager progressive care, indepentently interpreting results, counseling the patient and care coordination
--- NOTE | 2024-11-12 17:37 | PT.INIE ---
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 He started daily whole brain radiation on November 06 and he was started on high-dose dexamethasone over the weekend as well. Patient states his balance is worse since starting dexamethasone and he feels dizzy. He describes being unsteady on his feet, and falling over if he tips in either direction more than a few degrees. Work up noted for (+) UTI and treated initially with IV Antibiotics. Pt admitted to Med Surg PMHx: Insomnia (Acute) DVT prophylaxis (Acute) Thrombocytopenia (Chronic) Anemia (Chronic) Hypertension (Chronic) Palliative care patient (Acute) Need for home health care (Acute) Metastasis to brain (Acute) Metastasis to bone (Acute) Stage 4 lung cancer (Acute) ACP (advance care planning) (Acute) Weakness (Acute) UTI (urinary tract infection) (Acute) Medical History Major depression Former cigarette smoker Atrial fibrillation History of GI bleed secondary to metastatic lung cancerCardiomyopathy a/w CAD/MR, LVEF 55% up from 25-30% on 09/2024 echoObstructive sleep apnea normalized with weight loss, no longer on CPAP Surgical History S/P mitral valve repair S/P CABG x 1 Social History/Home Situation: Patient resides alone in two-story home with chairlift to second-floor. Patient has walker on each level of home. Independent ambulation with FWW, independent ADLs, med management, light meal prep. Until 3 weeks ago patient was driving. Patient reports he wears bilateral knee compression sleeves for pain management and is able to don them independently. Equipment Owned/DME: Single-point cane, stair chair lift, 2 FWW, grab bars in bathroom, hand-held shower patient resides alone in a two-story home, bilateral knee compression sleeves, AFO Subjective: Patient reports he feels much better now than he did this morning and the past few days. He reports his gait is more stable as compared to yesterday since receiving treatment in the emergency room. Objective: [] General Observation: male seated at edge of bed agreeable to participate IV access KRISTINAE Mental Status: Alert and oriented x 4 Pain: Bilateral knees 3/10 ROM: [] Right Upper Extremity: WNL Left Upper Extremity: WNL right Lower Extremity: Hip and knee WNL ankle DF to neutral, Limited Hamstring length left Lower Extremity: Hip and ankle WNL knee lacking 8 degrees of extension and limited hamstring length Strength: [] Right Upper Extremity: able to move all joints against gravity Left Upper Extremity: able to move all joints against gravity Right Lower Extremity:hip 3-/5 abduction and extension, flexion 3/5, knee flexion 3/5 extension >/= to 3/5 ankle DF 3/5 pf 3/5 Left Lower Extremity: hip 3-/5 abduction and extension, flexion 3/5, knee flexion 3/5 extension >/= to 3/5 ankle DF >/=to 3/5 pf 3/5 Sensation: intact Bed Mobility/Transfers: Supine to sit independent Sit to stand SBA with cues for hand placement Stand to sit SBA with cues for hand placement Bed to chair SBA with FWW with cues for safe approach to surface; patient tends to leave walker to the side and then needs sits Gait: ambulated with FWW 60 feet with CGA on level surfaces including turns. Patient requires cues to stay within frame of walker during turns. Patient demonstrates decreased knee flexion during left lower extremity advancement, decreased step height bilateral and increased forward flex trunk requiring cues for upright posture. Balance: Static Sitting: Normal Dynamic Sitting: Good Static Standing: Good Dynamic Standing: Fair plus Special Tests: [] 5 times sit to stand : 30.6 sec with LOB x 2 posteriorly Mobility Limitations Standardized Measure [] [facility] AM-PAC 6 clicks Basic Mobility Inpatient Short Form: [] Raw Score: 19 about CMS Score: 41.77% Informed Consent/Education: Patient instructed in purpose of PT consult. Assessment: Patient is a 73-year-old male presents with clinical signs and symptoms consistent with current/admitting diagnoses that have resulted to mobility limitations, gait instability, generalized weakness, and impairment of motor control as demonstrated by the following impairment level findings: 1. Decreased strength to left LE major muscle groups 2. Impaired standing balance 3. Limitation of joint range of motion in left knee 4. Impaired standing functional activity tolerance 5. Pain bilateral knees Impairments are contributing to the following functional limitations: 1. Inability to safely ambulate without assistive device 2. Increase completion time for mobility ADL performance 3. Increased fall risk Patient is assessed as a moderate complexity based on the following: History: 73-year-old male with impairment level findings, functional limitations, and past medical history as indicated above Examination: Demonstrable impairment in strength, balance, and mobility level with underlying impairments and functional limitations as documented above Presentation: Evolving Decision Making: Moderate Goals: 1. Independent transfers with FWW 2. Independent ambulation with FWW 300 feet level surfaces including turns without increased pain 3. Improve 5 times sit to stand score by >/= to 6 sec without LOB posteriorly Plan of Care/Treatment Plan: 1-2x/day, 7 days/week x 1 week. Plan of care has been reviewed with the REPORTS DEVELOPER providing the service under Physical Therapy direction. Initiate Physical Therapy intervention for strengthening, bed mobility, transfers, gait, stairs, balance training, use of assistive device. DISCHARGE RECOMMENDATIONS: Home with resumption of home health PT TREATMENT CODE/TIME: 32758/1716?[id number] Thank you for the opportunity to participate in the care of this patient. [facility]
[2024-11-12] MEDS: Omeprazole 20 MG CAPCR 40 MG PO (20:01)
[2024-11-12] MEDS: Memantine 5 MG TAB PO (20:02)
[2024-11-12] MEDS: Mirtazapine 15 MG TAB 7.5 MG PO (20:02)
[2024-11-12] MEDS: Valsartan 80 MG TAB 160 MG PO (20:02)
[2024-11-12] MEDS: Carvedilol 6.25 MG TAB PO (20:03)
[2024-11-12] MEDS: Normal Saline Flush 10 ML SYR IVP (20:03)
[2024-11-12 20:08] VITALS: BP 117/69; PULSE 64; RESP 16; TEMP 36.5; O2SAT 98
[2024-11-13 07:07] LABS: Anion Gap 5.6 mmol/L (3-11); BUN 42 mg/dL (7-18); CO2 26.4 mmol/L (21.0-32.0); CREATININE 1.5 mg/dL (0.70-1.30); Calcium 8.4 mg/dL (8.5-10.1); Chloride 103 mmol/L (98-107); Estimated GFR 49.16 (mL/min/1.73m2); Glucose 153 mg/dL (74-106); Potassium 5.4 mmol/L (3.5-5.1); Sodium 135 mmol/L (136-145)
[2024-11-13 07:42] VITALS: BP 153/93; PULSE 64; RESP 18; TEMP 36.4; O2SAT 100
[2024-11-13] MEDS: Dexamethasone 4 MG TAB PO ×2 (08:03→21:27)
[2024-11-13] MEDS: Valsartan 80 MG TAB 160 MG PO ×2 (08:03→21:28)
[2024-11-13] MEDS: amLODIPine 2.5 MG TAB PO (08:04)
[2024-11-13] MEDS: Memantine 5 MG TAB PO ×2 (08:04→21:28)
[2024-11-13] MEDS: Amiodarone 200 MG TAB PO (08:04)
[2024-11-13] MEDS: Omeprazole 20 MG CAPCR 40 MG PO ×2 (08:04→21:27)
[2024-11-13] MEDS: Atorvastatin 40 MG TAB PO (08:04)
[2024-11-13] MEDS: Carvedilol 6.25 MG TAB PO ×2 (08:05→21:27)
[2024-11-13] MEDS: Escitalopram 10 MG TAB PO (08:06)
[2024-11-13] MEDS: Normal Saline Flush 10 ML SYR IVP ×4 (08:07→21:29)
[2024-11-13] MEDS: buPROPion-CR 150 MG TABCR PO (08:07)
--- NOTE | 2024-11-13 10:37 | PTTR_ITS ---
PT Notes Visit Reasons: Weakness, Metastatic lung cancer to brain, UTI Inpatient Physical Therapy Treatment Note [facility] Date: 11/13/2024 PRECAUTIONS:fall risk, IV access, standard precautions, SUBJECTIVE:Pt reports he took half the dose of medication that he was taking at home and feels much better thana he did yesterday. He denied sensation of falling and weakness. OBJECTIVE: pt presented supine in bed watching TV agreeable and motivated to participate? PAIN: denies? Therapeutic Activities ([id number][]): Direct one-on-one instruction in dynamic activities to improve functional performance. ? BED MOBILITY/TRANSFERS? Rolling L/R: independent Supine-sit: independent ? Sit-supine: independent? Sit-stand: with use of UE SBA? Stand-sit: with BUE SBA ? Bed to/from Chair: SBA and cue to bring FWW with him pt tendency to leave FWW off to the side and side sit onto surface ? sit to stand without UE support with cues to scoot forward on seat x 5 trials with CGA with LOB posteriorly x 1 trial Provided skilled cues and instruction on performance and technique throughout. ? GAIT? Assistive Device: Fww ? Weight bearing: Full Assist: SBA cues for upright trunk ? Distance:? 320 feet x 1 , 60 feet x 1? Deviation: intermittent reduced step height which pt was able to correct with cue for upright posture and ? ASSESSMENT:? Pt demonstrate significant improvement in ability to manage FWW with turns keeping body within frame of FWW this session. Pt with no LOB during ambulation. PLAN: 1-2x/day, 7 days/week x 1 week. Plan of care has been reviewed with the APPRENTICESHIP CONSULTANT providing the service under Physical Therapy direction. Initiate Physical Therapy intervention for strengthening, bed mobility, transfers, gait, stairs, balance training, use of assistive device. TREATMENT CODE/TIME: 19200/ [id number] DISCHARGE RECOMMENDATION: Resumption of HH PT
--- NOTE | 2024-11-13 13:10 | PDOC.CMIN ---
Date of service: 11/13/24 Time of Service: 11:00 Care Management Initial Assmt Initial Assessment Reason for Hospitalization: weakness, UTI in setting of lung CA with mets to brain Functional Status/Living Situation Patient Presentation: Isacc was admitted yesterday through the ER with increased weakness, ataxia and increased falls. He has a history of lung CA with metastases to the brain, with progression noted on MRI 10/24. He is receiving radiation. Isacc lives alone, currently, he was to begin with HH yesterday, but came to the hospital instead. He has had 3 falls in 3 days. His Home Care is [facility]. / fax [phone]. Because he did not have the intake yesterday, he will need a new referral and Face to Face. When CM met with him today, he was sitting up in the bed, talking with his son, Ean, who was visiting. Isacc stated that he feels better today than yesterday. He is less dizzy and ambulated the halls with PT today. Isacc met with Palliative yesterday. It is clear from the notes and from talking with him and Ean, that his goals are to stay home as long as possible. He prefers not to go to SNF at this time unless it is clearly indicated. Isacc has a stair lift in the home, has 2 walkers, one for downstairs, and one for upstairs. He has grab bars in the bathroom. His had CA, and the home was set up for her assistance. CM discussed with Isacc and Ean having HH RN, PT/OT and PROM BURN OFF OPERATOR. Perhaps MOW. Let's increase the amount of services and people coming into the home as much as we can. Isacc and Ean are pleased with this plan. Town of Residence: [place], [place] Resides with: Alone Significant Other/Family: Out of area (Son Ean is the main support. Ean lives 1.5 hours away, and tries to visit daily. Mo has 2 sons. 2 daughters also live about the same distance, but are not as supportive. ) Caregiver/Guardian: Ean is Isacc's [facility] Natural Supports: Ean, family Employment Status: Retired Instrumental Activities of Daily Living (ADLs): Independent (has been independent, but is finding he needs more support.) Medications Medication Management: No Issues/Barriers identified (Ean helps to lay out his meds) Physical Functioning/Mobility Assistive Device: FWW Advance Directives Advance Directives: Do you have an Advance Directive: AD On File at [facility]: N 04/05/24 18:45 Date Asked 11/12/24 11/12/24 11:57 AD Date Reviewed COLST On File at [facility] Yes 11/12/24 15:51 COLST Date Scanned 11/12/24 11/12/24 15:51 Code Status Resuscitation Status DNR Portal Pt does not currently have a portal and education provided: Yes Insurance Coverage/Financial Issues Insurance: Medicare and BC/[place] of [place] Care Team Visit Care Team Role Provider Type Raleigh Berger Primary Care Provider OSTEOPATHIC DOCTOR InPatient [facility] Other Providers OTHER Fely Morrell Emergency Provider NURSE PRACTITIONER Juan Alberto Tolliver Admit Provider [facility] STAFF PHYSICIAN Attending Provider Discharge Potential Discharge Needs: PCP F/U Appt and Other (has ortho f/u on 11/17, immuno therapy tx on 11/20, and Dr. Coleman, heme/onc on 11/27. Would also like to see him followed by palliative care in his area.) Anticipated Barriers to Discharge: None Identified Patient/Family Education Needs: Review discharge instructions, discuss Ask Me Three Transportation: Private vehicle (Ean will drive Isacc home) Plan: Anticipate that Isacc will be discharged home within the next day or 2 with new orders for HH through [facility] for RN, PT, OT, and PROM BURN OFF OPERATOR. He will f/u with his community providers, and continue per his plan of care. He will transport home with his son. CM will continue to follow, and update the plan as needed. PFSH All Active Problems (Updated 11/12/24 @ 16:55 by Juan Alberto Tolliver) Insomnia (Acute) DVT prophylaxis (Acute) Thrombocytopenia (Chronic) Anemia (Chronic) Hypertension (Chronic) Palliative care patient (Acute) Need for home health care (Acute) Metastasis to brain (Acute) Metastasis to bone (Acute) Stage 4 lung cancer (Acute) ACP (advance care planning) (Acute) Weakness (Acute) UTI (urinary tract infection) (Acute) Medical History Major depression Former cigarette smoker Atrial fibrillation History of GI bleed secondary to metastatic lung cancer Cardiomyopathy a/w CAD/MR, LVEF 55% up from 25-30% on 09/2024 echo Obstructive sleep apnea normalized with weight loss, no longer on CPAP Surgical History S/P mitral valve repair S/P CABG x 1 Social History Smoking/Tobacco Use Status: Never Smoking risk assessment performed?: Yes Alcohol Intake: current Alcohol Intake frequency: a few times a week Details: one drink, not since dizzy Substance use type: does not use Housing: house Do you feel safe at home: Yes Do you feel safe in your relationship?: Yes Additional Social history: Lives alone in [place], [place]. Son Ean in [place], [place] Readmission Within the Past 30 Days Yes or No: No SDOH(Care Management) Screening Will the Patient Participate in the Screening?: Yes Do you worry about having a steady place to live?: no Problems where you live: no known problems In the past 12 months, have you had to go without electric, gas, oil or water in your home?: no Have you or anyone in your house had to go without enough food to eat?: no Has lack of transportation kept you from medical appointments or from doing things needed for daily living?: no Has anyone in your support network made you feel unsafe for any reason?: no Social Determinants of Health Comments(SDOH Details): lives alone, sometimes feels unsafe because pt gets dizzy Anticipated HH Services Anticipated HH Services at Discharge A ([facility] [phone], fax [phone]) Services Needed (RN, PT, OT, PROM BURN OFF OPERATOR).
[2024-11-13 14:05] VITALS: BP 140/78; PULSE 60; RESP 18; TEMP 36.2; O2SAT 99
[2024-11-13 14:07] VITALS: BP 140/78; PULSE 60; RESP 18; TEMP 36.2; O2SAT 99
[2024-11-13] MEDS: cefTRIAXone 1 GM/50 ML BAG IVPB (14:25)
--- NOTE | 2024-11-13 14:37 | PGE_ITS ---
Date of Service Date of service: 11/13/24 Time of Service: 14:37 Assessment and Plan Assessment and plan (1) Weakness: Status: Acute Assessment and plan: Increased weakness and ataxia with associated falls. Developing in setting of cerebral metastases with edema, getting whole brain radiation. Continue lower dose dexamethasone. Clinically it does appear he has some degree of poor proprioception as well as cerebellar involvement c/w 10/24 MRI. UTI may be contributing, see below. Working with PT, looks like he may be able to d/c home with PT as early as tomorrow, but discussed this is likely to get worse and he may need higher level of support in near future. (2) UTI (urinary tract infection): Status: Acute Assessment and plan: Possible UTI contributing to weakness. Continue ceftriaxone, follow urine culture. (3) Metastasis to brain: Status: Acute Assessment and plan: as above. He thought he was worse with 16mg/day dexamethasone, oncology recommended decreasing to 4mg BID, continue this. (4) Cardiomyopathy: Assessment and plan: LVEF normalized on recent echocardiogram, no evidence of active CHF. (5) Atrial fibrillation: Assessment and plan: Rate controlled with carvedilol, off anticoagulation due to severe GI bleed. (6) Anemia: Status: Chronic Assessment and plan: This is chronic, near or improved from previous levels. Follow in AM (7) Thrombocytopenia: Status: Chronic Assessment and plan: This is new. No cirrhosis on CT abd/pelvis from in August. May be infiltratrive. Follow in AM. (8) Insomnia: Status: Acute Assessment and plan: taking advil or aleve PM as outpatient. Discussed potential ADRs with NSAIDs and diphenhydramine. Try low dose mirtazipine instead, cut buproprion to just 150mg SR in am. (9) DVT prophylaxis: Status: Acute Assessment and plan: history of severe GI bleed with stomach metastases. Even with DVT, avoid anticoagulation, SCDs and work with PT. (10) Palliative care patient: Status: Acute Assessment and plan: Appreciate palliative input. They will follow on Saturday if still here. Subjective Subjective Patient reports: feels better, tolerating a regular diet and voiding w/o difficulty; denies diarrhea, nausea, vomiting, shortness of breath or fever Interval history since last seen: Did better wiht PT than expected. No longer feels dizzy spells. Using walker, but still feels a little unsteady. Eating, denies pain. Exam Narrative Exam Narrative: GEN: Alert and oriented, No acute distress at rest, sits self up on bed LUNGS: CTAB with normal effort CV: Irregular, borderline bradycardia, with no murmurs, gallops, or rubs. ABD: active bowel sounds, soft, nontender and nondistended. No masses. EXT: no cyanosis, clubbing, or edema NEURO: CN 2-12 grossly intact. Normal symmetric strength of 4 extremities and gross sensation. Quicker and more accurate with FNF today. No pronator drift. Normal speech. No tremor Objective Last Vital Signs Temp 36.2 C L 11/13/24 14:07 Pulse 60 11/13/24 14:07 Resp 18 11/13/24 14:07 BP 140/78 11/13/24 14:07 Pulse Ox 99 11/13/24 14:07 Laboratory Results - last 24 hr 11/12/24 11/12/24 11/13/24 13:24 13:55 06:30 Sodium 135 L Potassium 5.4 H Chloride 103 Carbon Dioxide 26.4 Anion Gap 5.6 BUN 42 H Creatinine 1.5 H Est GFR (CKD-EPI 2020) 49.16 Glucose 153 H Calcium 8.4 L Urine RBC Not Applicable Ur Epithelial Cells Not Applicable Urine Crystals Not Applicable Urine Bacteria Not Applicable Urine Mucus Not Applicable COVID-19 Source Nasopharynx SARS-CoV-2 (PCR) Negative Influenza Type A (PCR) Negative Influenza Type B (PCR) Negative RSV (PCR) Negative Time Spent with Patient Time Spent with Patient: 35-49 minutes Time was spent: preparing to see the patient(eg.review tests), obtaining and/or reviewing separately otained hiistory, ordering medications,tests, procedures, referring, communicating with other health child care specialist, indepentently interpreting results, counseling the patient and care coordination
--- NOTE | 2024-11-13 14:41 | CHAPLAIN ---
Elbert was sitting up in bed when I visited. His son, Ean, was with him. They were both very pleasant and easily engaged in conversation. Elbert has lung cancer with mets to the brain. He lives in [place]. His son lives about 1.5 hours away but sees Elbert daily according to Care Management notes. Elbert has other children, but Ean is his main support. He is receiving radiation, and is connected with Palliative Care and [facility].
[2024-11-13 15:12] VITALS: BP 142/73; PULSE 61; RESP 18; TEMP 36.3; O2SAT 97
--- NOTE | 2024-11-13 15:30 | PT.INTREAT ---
PT Notes Visit Reasons: Weakness, Metastatic lung cancer to brain, UTI Inpatient Physical Therapy Treatment Note [facility] Date: 11/13/24 SUBJECTIVE: Elbert states that he just fell in the bathroom. Indicated that he slid forward off toilet landing on his bottom. Denies any injuries. Is agreeable to PT. OBJECTIVE: []? VITALS: ?closely monitored by nsg. Therapeutic Activities ([id number]): Direct one-on-one instruction in dynamic activities to improve functional performance. ? BED MOBILITY/TRANSFERS? Supine-sit: I ? Sit-supine: I? Sit-stand: I? Stand-sit: I ? Provided skilled cues and instruction on performance and technique throughout. ? GAIT? Assistive Device: FWW ? Weight bearing: full Assist: SBA? Distance:? approx 300' ? Deviation: decreased stride length.? Neuromuscular Re-education ([id number]): Activities that facilitate re-education of movement balance, posture, coordination, and proprioception or kinesthetic sense, requiring skilled tactile and verbal cues ? Exercises/techniques: ?worked on balance ex with NBOS, and tandem stance, holding in place as well as looking multidirectional. Sit to stand with use of UE x5. No LOB noted. ASSESSMENT:? tolerated session well. No LOB noted with balance ex today. He did find the tandem stance challenging. PLAN: continue to work on strength and functional mobility. TREATMENT CODE/TIME: 25 min [id number], [id number] DISCHARGE RECOMMENDATION: home with
[2024-11-13 21:26] VITALS: BP 131/78; PULSE 68; RESP 16; TEMP 36.6; O2SAT 98
[2024-11-13] MEDS: Mirtazapine 15 MG TAB 7.5 MG PO (21:27)
[2024-11-14 07:03] LABS: Abs Immature Grans 0.04 10^3/uL (0.0-0.06); Absolute Eosinophil Count 0.01 10^3/uL (0.0-0.7); Absolute Lymphocyte Count 0.18 10^3/uL (1.2-3.4); Absolute Monocyte Count 0.15 10^3/uL (0.1-0.8); Eosinophils % 0.2 %; HCT 31.4 % (40.0-50.0); HGB 10.9 g/dL (13.5-17.5); Immature Grans % 0.7 %; MCH 33.3 pg (27.0-33.0); MCHC 34.7 % (32.0-36.0); MCV 96 fL (80-95); MPV 9.4 fL (8.0-11.0); Monocytes % 2.5 %; Neutrophils % 93.6 %; RBC 3.27 10^6/uL (4.36-5.78); RDW 14.2 % (11.8-14.1); WBC 6.08 10^3/uL (4.4-10.8)
[2024-11-14 07:26] LABS: ALT 53 U/L (16-63); AST 34 U/L (15-37); Albumin 2.4 g/dL (3.4-5.0); Alkaline Phosphatase 71 U/L (46-116); Anion Gap 6.6 mmol/L (3-11); BUN 38 mg/dL (7-18); Bilirubin, Total 0.42 mg/dL (0.2-1.0); CO2 27.4 mmol/L (21.0-32.0); CREATININE 1.5 mg/dL (0.70-1.30); Calcium 8.8 mg/dL (8.5-10.1); Chloride 104 mmol/L (98-107); Estimated GFR 49.16 (mL/min/1.73m2); Glucose 154 mg/dL (74-106); Potassium 5.3 mmol/L (3.5-5.1); Sodium 138 mmol/L (136-145); Total Protein 5.7 g/dL (6.4-8.2)
[2024-11-14 07:38] LABS: Platelet Count 71 10^3/uL (130-400)
[2024-11-14 07:53] VITALS: BP 134/80; PULSE 68; RESP 15; TEMP 36.4; O2SAT 97
[2024-11-14] MEDS: Valsartan 80 MG TAB 160 MG PO (08:29)
[2024-11-14] MEDS: Normal Saline Flush 10 ML SYR IVP ×3 (08:29→13:53)
[2024-11-14] MEDS: Omeprazole 20 MG CAPCR 40 MG PO (08:30)
[2024-11-14] MEDS: Dexamethasone 4 MG TAB PO (08:30)
[2024-11-14] MEDS: Atorvastatin 40 MG TAB PO (08:31)
[2024-11-14] MEDS: amLODIPine 2.5 MG TAB PO (08:31)
[2024-11-14] MEDS: Amiodarone 200 MG TAB PO (08:31)
[2024-11-14] MEDS: buPROPion-CR 150 MG TABCR PO (08:32)
[2024-11-14] MEDS: Memantine 5 MG TAB PO (08:32)
[2024-11-14] MEDS: Carvedilol 6.25 MG TAB PO (08:32)
[2024-11-14] MEDS: Escitalopram 10 MG TAB PO (08:32)
--- NOTE | 2024-11-14 10:19 | PDOC.HHF2F ---
Home Health Referral Home Health Orders Clinical synopsis of why skilled professionals are needed: 73 yo with stage 4 lung cancer 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 He has lung cancer metastatic to his brain, with progression noted on MRI on October 24. He started daily whole brain radiation on November 06. He and his family noted increased difficulty with balance, and he was started on high-dose dexamethasone but was not imrpoving and presented to the hospital. On admission he had symptoms and signs of poor proprioception and an element of cerebellar ataxia more on the left c/w cerebellar lesions on his brain MRI. Dexamethasone was continued at a lower dose of 4mg BID. His symptoms improved to some degree and PT evaluation recommended home health PT. This was consistent with the patient's desire to stay in his home as long as possible, even though he is likely to require nursing care as his cancer progresses. He was getting insomnia and was taking OTC Advil PM. The evening buproprion dose was stopped and he was given mirtazipine 7.5mg qhs. His sleep and mood were good here. His urinalysis was consistent with UTI and the culture grew enterobacter cloacae resistant to cefazolin. He was treated with ceftriaxone and given cefixime at discharge to finish 1 week. Medical diagnosis necessitation home health referral: metastatic lung cancer to brain, ataxia Registered Nurse: Check all that apply Instruct on new or changed medication(s)/assess compliance: Ordered Physical Therapist: Check all that apply Increase strength & endurance for safe mobility at home: Ordered To design/establish home maintenance program: Ordered Fall reduction therapy program for patient with history of frequent falls: Ordered Home safety evaluation and teaching/gait training including stair management (if applicable): Ordered Private Client Advisor: Assist with community resources: Ordered Assist with usp care planning: Ordered Home Bound Status Requires the aid of supportive device (check all that apply): Walker Describe why leaving home would require a considerable and taxing effort: Safety Concerns: describe (frequent falls associated with brain cancer) Encounter Date and Reason: I certify that a FTF encounter for this patient was performed on November 14, 2024 and that such encounter was related to the primary reason the patient requires home health services. The encounter was conducted in the following manner: By me as the certifying physician, FORMING MACHINE UPKEEP MECHANIC HELPER, PA or By an inpatient physician, FORMING MACHINE UPKEEP MECHANIC HELPER or PA during an inpatient stay who communicated findings to me, Certification And Authentication I certify that I composed the above information based on my clinical judgment relating to this patient's medical condition and, if applicable, clinical findings communicated to me by the NPP or inpatient physician who performed the FTF encounter. Name of Provider that will be monitoring home health services: Raleigh Berger
--- NOTE | 2024-11-14 11:31 | PT.INTREAT ---
PT Notes Visit Reasons: Weakness, Metastatic lung cancer to brain, UTI Inpatient Physical Therapy Treatment Note [facility] Date: 11/14/24 SUBJECTIVE: Elbert states that he is feeling much better today. Nervous about going home as he lives alone and is afraid that he will have an episode and fall again. OBJECTIVE: []? VITALS: ?monitored by [facility] Therapeutic Activities ([id number]): Direct one-on-one instruction in dynamic activities to improve functional performance. ? BED MOBILITY/TRANSFERS? pt seated in chair.? Sit-stand: S/I ? Stand-sit: I ? Provided skilled cues and instruction on performance and technique throughout. GAIT? Assistive Device: FWW? Weight bearing: AT Assist: SBA ? Distance:? 300' +? Deviation: decreased stride length and floor clearance towards end of walk due to fatigue. STAIRS: ascend/descend 2, 6 steps and 3, 4 steps with 2 rails and SBA. ?he also performed sit stand transfers x6 without use of his arms. ? ASSESSMENT:? significant improvements in strength, endurance, balance compared to yesterday. No LOB noted. PLAN: will continue to work on functional mobility to tolerance TREATMENT CODE/TIME: 25 min [id number]
[2024-11-14] MEDS: cefTRIAXone 1 GM/50 ML BAG IVPB (13:16)
--- NOTE | 2024-11-14 14:20 | RESPIRATORY ---
11/14/24 Pt states he had a sleep study about 9 months ago and was told he does not need a CPAP. [facility] but does not [facility]. No home O2.
--- NOTE | 2024-11-14 14:47 | DSE_ITS ---
Date of service: 11/14/24 Time of Service: 14:47 DS: Diagnosis Discharge Diagnosis (1) Weakness: Status: Acute (2) UTI (urinary tract infection): Status: Acute (3) Metastasis to brain: Status: Acute (4) Cardiomyopathy: (5) Atrial fibrillation: (6) Anemia: Status: Chronic (7) Thrombocytopenia: Status: Chronic (8) Insomnia: Status: Acute (9) DVT prophylaxis: Status: Acute (10) Palliative care patient: Status: Acute Discharge Plan Disposition Patient Disposition: Home W/Home Health Services Condition: Fair Discharge Details Reason For Visit: Weakness, Metastatic lung cancer to brain, UTI Admit Date/Time: 11/12/24 14:53 Admit Provider: Juan Alberto Tolliver Attending Provider: Juan Alberto Tolliver Primary Care Provider: Raleigh Berger Hospital Course Hospital Course: 73 yo with stage 4 lung cancer 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 He has lung cancer metastatic to his brain, with progression noted on MRI on October 24. He started daily whole brain radiation on November 06. He and his family noted increased difficulty with balance, and he was started on high-dose dexamethasone but was not imrpoving and presented to the hospital. On admission he had symptoms and signs of poor proprioception and an element of cerebellar ataxia more on the left c/w cerebellar lesions on his brain MRI. Dexamethasone was continued at a lower dose of 4mg BID. His symptoms improved to some degree and PT evaluation recommended home health PT. This was consistent with the patient's desire to stay in his home as long as possible, even though he is likely to require nursing care as his cancer progresses. He was getting insomnia and was taking OTC Advil PM. The evening buproprion dose was stopped and he was given mirtazipine 7.5mg qhs. His sleep and mood were good here. His urinalysis was consistent with UTI and the culture grew enterobacter cloacae resistant to cefazolin. He was treated with ceftriaxone and given cefixime at discharge to finish 1 week. Home Meds and New Rx's Prescriptions: New mirtazapine 15 mg Tablet 7.5 mg PO HS Qty: 30 2RF cefixime 400 mg capsule 400 mg PO DAILY 4 Days Qty: 4 0RF Rx Instructions: due 11/15 Continued atorvastatin 40 mg tablet 40 mg PO DAILY Patient Comments: TAKE 1 TABLET BY MOUTH ONCE DAILY carvedilol 6.25 mg tablet 6.25 mg PO BID Patient Comments: TAKE 1 TABLET BY MOUTH TWICE DAILY . PRESCRIBED BY CARDIOLOGY amiodarone 200 mg tablet 200 mg PO DAILY Patient Comments: TAKE 1 TABLET BY MOUTH ONCE DAILY amlodipine 2.5 mg tablet 2.5 mg PO DAILY Patient Comments: TAKE 1 TABLET BY MOUTH ONCE DAILY PER GOLD CHARMER prochlorperazine maleate 10 mg tablet 10 mg PO Q6H PRN (Reason: nausea and vomiting) omeprazole 40 mg capsule,delayed release(DR/EC) 40 mg PO BID Patient Comments: TAKE 1 CAPSULE BY MOUTH TWICE DAILY 30 MINUTES BEFORE FIRST AND LAST MEAL OF THE DAY dexamethasone 4 mg tablet 8 mg PO Q24H Patient Comments: TAKE 2 TABLETS BY MOUTH TWICE DAILY WITH FOOD FOR 2 DAYS THEN STARTING FRIDAY 11/09 TAKE 2 TABLETS ONCE DAILY WITH BREAKFAST valsartan 160 mg tablet 160 mg PO BID Patient Comments: TAKE 1 TABLET BY MOUTH TWICE DAILY escitalopram oxalate 10 mg tablet 10 mg PO DAILY Patient Comments: TAKE 1 TABLET BY MOUTH ONCE DAILY memantine 10 mg tablet 5 mg PO BID Patient Comments: TAKE 1/2 (ONE-HALF) TABLET BY MOUTH ONCE DAILY FOR 7 DAYS,THEN 1/2 TAB IN THE MORNING AND 1/2 TAB IN THE EVENING FOR 7 DAYS, THEN 1 TAB IN THE MORNING AND 1/2 TAB IN THE EVENING FOR 7 DAYS, THEN 1 TAB IN THE MORNING AND 1 TAB IN THE EVENING aspirin [Enteric Coated Aspirin] 81 mg tablet,delayed release (DR/EC) 81 mg PO DAILY multivitamin [Daily Multi-Vitamin] Tablet 1 tab PO DAILY Changed bupropion HCl 150 mg tablet sustained-release 12 hr 150 mg PO DAILY Qty: 0 0RF Patient Comments: TAKE 1 TABLET BY MOUTH TWICE DAILY Discharge Instructions Instructions: Preventing falls in adults Additional Instructions: Home health was ordered for PT and nursing and to help plan case management director care. You should avoid the Advil PM and similar medicaitons. We sent mirtazipine at a low dose to help you sleep. We also stopped the later dose of burpprion, which is an antidepressant that can be stimulating. You should just take this in the morning for now. You were treated for a urinary tract infection. You should take antibiotics for 4 more days to make sure this clears, starting 12/29 Stand Alone Forms: Nursing Discharge Form Referrals: Raleigh Berger [Primary Care Provider] - (Please call the office on Saturday to set up your hospital follow up. ) Activity:: Activity as Tolerated Equipment/Supplies:: No Equipment Needed Diet:: As Tolerated Discharge Orders Discharge Orders: Discharge Order (Routine); Ordered 11/14/24 Ordered By: Juan Alberto Tolliver DS: Summary Time Spent with Patient providing and/or coordinating discharge services: Greater than 30 minutes Status at Discharge Functional status at discharge: uses cane/walker Overall status at discharge: patient is back to baseline Mental Status: mental status grossly normal Speech and Movement: speech and movement normal Mood: congruent mood Affect: normal affect Quality:SDOH Health Related Social Needs: No Data to Display Referrals and interventions: could benefit from visiting nurses/lnas to check on pt Exam Narrative Exam Narrative: GEN: Alert and oriented, No acute distress at rest, sits self up on bed LUNGS: CTAB with normal effort CV: Irregular, borderline bradycardia, with no murmurs, gallops, or rubs. ABD: active bowel sounds, soft, nontender and nondistended. No masses. EXT: no cyanosis, clubbing, or edema NEURO: CN 2-12 grossly intact. Normal symmetric strength of 4 extremities and gross sensation. coordination improved in arms, more stable when standing. Normal speech. No tremor Psych Mental Status: mental status grossly normal Speech and Movement: speech and movement normal Mood: congruent mood Affect: normal affect DS: Data Vitals/I&O Vitals and I&O: Vital Signs Temperature 36.4 C L 11/14/24 07:53 Temperature Source Temporal Artery Scan 11/14/24 07:53 Pulse 68 11/14/24 07:53 Respiratory Rate 15 11/14/24 07:53 Respiratory Effort Normal, Non-Labored 11/12/24 15:50 Respiratory Depth Normal 11/12/24 15:50 Respiratory Pattern Normal 11/12/24 15:50 Blood Pressure 134/80 11/14/24 07:53 Blood Pressure Position Sitting 11/12/24 12:06 Pulse Oximetry 97 11/14/24 07:53 Oxygen Delivery Method Room Air 11/14/24 07:53 Oxygen Flow Rate 0 11/14/24 07:53 Pain Level 0 11/14/24 07:53 Intake & Output 11/13/24 11/14/24 11/14/24 23:59 11:59 23:59 Intake Total 1530 / 1530 641 / 691 50 / 691 Output Total 350 / 350 Balance 1530 / 1530 291 / 341 50 / 341 Intake: IV 50 / 50 50 / 50 Oral 1480 / 1480 641 / 641 Output: Urine 350 / 350 Other: Urine Color Yellow Yellow Urine Appearance Clear Clear Urine Odor None None Comment pt voided in toliet pt voided in toilet. flushed before i could see Data Completed and Pending Labs on day of discharge: Labs from last 24 hours 11/14/24 06:10 WBC 6.08 RBC 3.27 L Hgb 10.9 L Hct 31.4 L MCV 96 H MCH 33.3 H MCHC 34.7 RDW 14.2 H Plt Count 71 L MPV 9.4 Immature Gran % 0.7 Neutrophils % 93.6 Lymphocytes % 3.0 Monocytes % 2.5 Eosinophils % 0.2 Basophils % 0.0 Nucleated RBC % 0.0 Absolute Neutrophils 5.70 Absolute Lymphocytes 0.18 L Absolute Monocytes 0.15 Absolute Eosinophils 0.01 Absolute Basophils 0.00 Sodium 138 Potassium 5.3 H Chloride 104 Carbon Dioxide 27.4 Anion Gap 6.6 BUN 38 H Creatinine 1.5 H Est GFR (CKD-EPI 2020) 49.16 Glucose 154 H Calcium 8.8 Total Bilirubin 0.42 AST 34 ALT 53 Alkaline Phosphatase 71 Total Protein 5.7 L Albumin 2.4 L PFSH All Active Problems (Updated 11/12/24 @ 16:55 by Juan Alberto Tolliver) Insomnia (Acute) DVT prophylaxis (Acute) Thrombocytopenia (Chronic) Anemia (Chronic) Hypertension (Chronic) Palliative care patient (Acute) Need for home health care (Acute) Metastasis to brain (Acute) Metastasis to bone (Acute) Stage 4 lung cancer (Acute) ACP (advance care planning) (Acute) Weakness (Acute) UTI (urinary tract infection) (Acute) Medical History Major depression Former cigarette smoker Atrial fibrillation History of GI bleed secondary to metastatic lung cancer Cardiomyopathy a/w CAD/MR, LVEF 55% up from 25-30% on 09/2024 echo Obstructive sleep apnea normalized with weight loss, no longer on CPAP Surgical History S/P mitral valve repair S/P CABG x 1 Social History Smoking/Tobacco Use Status: Never Smoking risk assessment performed?: Yes Alcohol Intake: current Alcohol Intake frequency: a few times a week Details: one drink, not since dizzy Substance use type: does not use Housing: house Do you feel safe at home: Yes Do you feel safe in your relationship?: Yes Additional Social history: Lives alone in [place], [place]. Herberth Mckoy in [place], [place] Time Spent with Patient Time Spent with Patient: 45-69 minutes Time was spent: preparing to see the patient(eg.review tests), obtaining and/or reviewing separately otained hiistory, ordering medications,tests, procedures, referring, communicating with other health urgent care nurse practitioner, indepentently interpreting results, counseling the patient and care coordination
--- NOTE | 2024-11-14 15:17 | CMDISCH_ITS ---
Date of service: 11/14/24 Time of Service: 15:17 LACE Index Scoring Tool Questions: Length of Stay (in days): 2 Was the patient admitted via the E.D.?: Yes Comorbidities: Chronic Pulmonary Disease and Metastatic Solid Tumor E.D. Visits: 1 Answers: Total Score: 11 Risk of Readmission: High Risk Care Management Discharge Plan Reason for Hospitalization: Uti Discharge Plan: Isacc will be discharged home with new orders for RN, PT, and ARTIFICIAL LEATHER CALENDER OPERATOR through [facility]. He will follow up with his community providers and continue his plan of care. He will transport home with his son. Patient/Family Education Needs: Review discharge instructions, limitations, follow up plan and discuss Ask Me Three SDOH Health Related Social Needs: No Data to Display Referrals and interventions: could benefit from visiting nurses/lnas to check on pt
== END 2024-11-14 15:34 | disposition home health service (06) | DRG 689 ==
LOC: ER 15:26 → MS 15:50
PROVIDERS: Admitting Provider Family Medicine; Emergency Provider Nurse Practitioner Family; PCP Family Medicine; Visit Provider Family Medicine
DX: N39.0 Urinary tract infection, site not specified (principal); G93.6 Cerebral edema; C79.51 Secondary malignant neoplasm of bone; C79.31 Secondary malignant neoplasm of brain; I42.9 Cardiomyopathy, unspecified; C78.89 Secondary malignant neoplasm of other digestive organs; C34.90 Malignant neoplasm of unspecified part of unspecified bronchus or lung; R53.1 Weakness; Z74.2 Need for assistance at home and no other household member able to render care; Z51.5 Encounter for palliative care; I48.91 Unspecified atrial fibrillation; F32.9 Major depressive disorder, single episode, unspecified; D64.9 Anemia, unspecified; D69.6 Thrombocytopenia, unspecified; G47.00 Insomnia, unspecified; E78.5 Hyperlipidemia, unspecified; I50.9 Heart failure, unspecified; I11.0 Hypertensive heart disease with heart failure; R29.6 Repeated falls; I25.10 Atherosclerotic heart disease of native coronary artery without angina pectoris; Z95.4 Presence of other heart-valve replacement; Z87.891 Personal history of nicotine dependence; G47.33 Obstructive sleep apnea (adult) (pediatric); Z95.1 Presence of aortocoronary bypass graft; B96.89 Other specified bacterial agents as the cause of diseases classified elsewhere
CPT/HCPCS: 00123; 36415; 80048; 80053; 87077; 87637; 93005; 96365; 97112; 97162; 97530; 99285; 71046; 81003; 81015; 83735; 85025; 87086; 87186; 93010; 99223; 99233; 99239; J0696; J8540